=== PATIENT | male | born 1935 | race Caucasian/White ===

== ENCOUNTER 2018-09-17 18:34 | Inpatient (IN) ==
--- NOTE | 2018-09-17 19:11 | XRay Report ---
CLINICAL INFORMATION: Fall. Left hip pain TECHNIQUE: AP pelvis. AP and lateral left hip COMPARISON: None. FINDINGS: Lateral view suggests possible left subcapital hip fracture. This is not considered definite but is suspicious. CT scan may be helpful for further evaluation. Pelvis is negative. No pelvic fracture. Right hip is negative. IMPRESSION: 1. Possible left subcapital hip fracture. 2. CT scan may be helpful for further evaluation Interpreted and Authenticated by: Shashi Cruz 09/17/18
[2018-09-17] MEDS ORDERED: HYDROmorphone 2 MG/ML VIAL IV PRN ×2 (19:16→23:26)
--- NOTE | 2018-09-17 19:17 | Emergency Department Note ---
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 Didn't hit head. - Related Data Home Medications Medication Instructions Recorded Confirmed RX: Acyclovir [Zovirax] 400 mg PO BID 03/24/15 04/19/18 RX: Carvedilol [Coreg] 6.25 mg PO BIDCC 07/22/15 04/19/18 rivaroxaban 20 mg tablet 15 mg PO DAILY tab 12/11/16 04/19/18 RX: Cholecalciferol (Vitamin D3) 2,000 unit PO DAILY 01/21/18 04/19/18 [Vitamin D3] RX: Eplerenone [Inspra] 25 mg PO BID 01/21/18 04/19/18 RX: Hydrochlorothiazide [Oretic] 12.5 mg PO WEEKLY 01/21/18 04/19/18 RX: Multivit-Min/Iron/Folic Acid/K 1 tab PO DAILY 01/21/18 04/19/18 [Adults Multivitamin Tablet] RX: Torsemide [Demadex] 2 tablet PO BID 01/21/18 04/19/18 Previous Rx's Medication Instructions Recorded RX: Acetaminophen [Tylenol] 1,000 mg PO TID tablet 01/26/18 RX: Polyethylene Glycol 3350 17 gm PO BID #60 packet 01/26/18 [Miralax] RX: Polyethylene Glycol 3350 17 gm PO BIDP PRN packet 01/26/18 [Miralax] RX: Sennosides/Docusate Sodium 2 tab PO HS tablet 01/26/18 [Senna Plus Tablet] RX: oxyCODONE HCL [Roxicodone] 5 mg PO Q6HP PRN #30 tab 01/26/18 Cyclobenzaprine [Flexeril] 5 mg PO TIDP PRN #20 tab 05/24/18 RX: Doxycycline Hyclate 100 mg PO BID #20 cap 05/24/18 RX: HYDROcodone/APAP 5/325MG 1 tab PO Q4HP PRN #20 tab 05/24/18 [[place] 5-325Mg] predniSONE [Prednisone] 40 mg PO DAILY #10 tab 05/24/18 Allergies Allergy/AdvReac Type Severity Reaction Status Date / Time ciprofloxacin Allergy Severe Anaphylaxis Verified 09/17/18 18:35 Amoxicillin [AMOXICILLIN] Allergy Intermediate RASH Verified 09/17/18 18:35 azithromycin [From Zithromax] Allergy Unknown Pruritis Verified 09/17/18 18:35 tramadol [TRAMADOL] AdvReac Severe Nausea/Vomi Verified 09/17/18 18:35 ting codeine AdvReac Unknown NAUSEA/VOMI Verified 09/17/18 18:35 TING hydrocodone AdvReac Unknown NAUSEA/BLOA Verified 09/17/18 18:35 TING methocarbamol AdvReac Unknown VIOLENTLY Verified 09/17/18 18:35 ILL tobramycin AdvReac Unknown UNKNOWN Verified 09/17/18 18:35 Review of Systems All systems ED: reviewed and negative except as stated. Fall PMH - Past Medical History Attestation: Yes: The following information was validated with the patient. Medical history: Reports: atrial fibrillation, hyperlipidemia, hypertension, renal disease, other (Cardiac amyloidosis which is causing cardiomyopathy and CHF). Denies: DM Reports: Recurrent Falls, Peripheral Neuropathy - Social History smoking status: Never smoker Alcohol use: Reports: None Drug use: Reports: none Physical Exam Limitations: no limitations General appearance: alert, in no apparent distress Head: atraumatic, normocephalic Eye: Present: normal appearance, PERRL, EOMI ENT: normal exam, normal oropharynx, mucous membranes moist Neck: Present: normal inspection, full ROM Chest: Present: normal inspection, symmetric chest wall rise Respiratory: Present: normal lung sounds bilaterally. Absent: respiratory distress, rales/crackles, wheezes, stridor, accessory muscle use Cardiovascular: Present: irregular rhythm Abdominal: Present: soft. Absent: distention, tenderness, guarding, rebound Hip/Pelvis: Present: tenderness (tenderness along anterior groin, lateral left hip). Absent: deformity, external rotation, internal rotation, shortening Course Vital Signs Temperature 98.5 F 09/17/18 18:35 Pulse Rate 74 09/17/18 18:35 Respiratory Rate 18 09/17/18 18:35 Blood Pressure 109/63 09/17/18 18:35 Pulse Oximetry (%) 95 06/28/19 18:35 Temperature 97.8 F 09/17/18 20:34 Pulse Rate 78 09/17/18 22:01 Respiratory Rate 18 09/17/18 20:34 Blood Pressure 133/86 09/17/18 22:01 Pulse Oximetry (%) 90 09/17/18 22:01 Fall - MDM Narrative Medical decision making narrative: patient XR demonstrating probable subcapital hip fracture of left hip with f/u CT pelvis w/o contrast demonstrating: Nondisplaced left subcapital hip fracture. Mid and distal femoral neck and intertrochanteric region are negative. Left acetabulum is negative. No pelvic fracture. Superior and inferior pubic rami are negative. Sacrum is negative. Consulted orthopedics, who will admit for pinning of the subcapital nondisplaced left hip fracture. Patient anticoagulated with Xarelto, with comorbidities admitted to hospitalist service in fair condition. - Lab Data Lab results reviewed: Yes I reviewed the patient's lab results. Result diagrams: 09/17/18 19:28 09/17/18 19:28 Lab Results 09/17/18 09/17/18 09/17/18 Range/Units 19:28 19:28 19:28 WBC 6.2 (4.5-11.0) K/mcL RBC 2.38 L (4.50-5.90) M/mcL Hgb 8.5 L (13.5-16.5) g/dL Hct 26.1 L (41.0-55.0) % MCV 109.6 H (80.0-100.0) fL MCH 35.8 H (26.0-34.0) pg MCHC 32.6 (31.0-36.0) g/dL RDW 16.8 H (11.5-14.5) % Plt Count 181 (140-440) K/mcL MPV 7.9 (7.4-10.4) fL Gran % 60.2 (38.0-78.0) % Lymph % (Auto) 23.1 (15.5-49.0) % [place] % (Auto) 14.2 H (1.0-12.0) % Eos % (Auto) 2.4 (0.0-7.0) % Baso % (Auto) 0.1 (0.0-2.0) % Gran # 3.8 (1.8-8.0) K/mcL Lymph # (Auto) 1.4 L (1.5-4.8) K/mcL [place] # (Auto) 0.9 (0.1-0.9) K/mcL Eos # (Auto) 0.2 (0.0-0.7) K/mcL Baso # (Auto) 0 (0.0-0.3) K/mcL PT 16.7 H (11.9-14.5) sec INR 1.4 H (0.9-1.1) Sodium 131 L (133-145) mmol/L Potassium 3.7 (3.3-5.1) mmol/L Chloride 90 L (96-108) mmol/L Carbon Dioxide 27 (22-30) mmol/L Anion Gap 14.0 (8-16) BUN 58 H (8-23) mg/dl Creatinine 1.5 H (0.7-1.2) mg/dl GFR Calculation 43 Glucose 190 H (70-105) mg/dL Calcium 9.8 (8.6-10.4) mg/dl Total Bilirubin 0.7 (0.0-1.0) mg/dL AST 24 (0-37) U/l ALT 15 (0-40) U/l Alkaline Phosphatase 74 (39-117) U/L Total Protein 6.6 (5.9-8.4) gm/dL Albumin 3.4 (3.2-5.2) gm/dL Globulin 3.2 (2.2-3.7) gm/dL Albumin/Globulin Ratio 1.1 (1.0-2.3) - Radiology Data Radiology results reviewed: Yes I reviewed the patient's radiology results. Disposition Pt seen by [employer]ILER[employer]SE [employer]CH[employer]IC/PA only: No Clinical Impression: Chronic kidney disease, stage III (moderate), Cardiac amyloidosis, Atrial fibrillation with controlled ventricular response Femur fracture, left Qualifiers: Encounter type: initial encounter Femur location: intracapsular Fracture type: closed Qualified Code(s): S72.012A - Unspecified intracapsular fracture of left femur, initial encounter for closed fracture Atrial fibrillation Qualifiers: Atrial fibrillation type: persistent Qualified Code(s): I48.1 - Persistent atrial fibrillation (HFpEF) heart failure with preserved ejection fraction Qualifiers: Heart failure chronicity: chronic Qualified Code(s): I50.32 - Chronic diastolic (congestive) heart failure Disposition: Xfer As Inpt ([facility]) Condition: Fair Referrals: Nixon Shoemaker MD [Primary Care Provider] -
--- NOTE | 2018-09-17 20:05 | Cat Scan Report ---
CLINICAL INFORMATION: Fall. Left hip injury. TECHNIQUE: Thin section axial images through the pelvis. Sagittal and coronal reformatted images. COMPARISON: Plain film examination dated 09/17/2018. Abdominal and pelvic CT scan dated 04/19/2018 FINDINGS: Nondisplaced left subcapital hip fracture. Mid and distal femoral neck and intertrochanteric region are negative. Left acetabulum is negative. No pelvic fracture. Superior and inferior pubic rami are negative. Sacrum is negative. No intrapelvic hematoma. No periarticular soft tissue abnormality. IMPRESSION: Left subcapital hip fracture. Interpreted and Authenticated by: Shashi Cruz 09/17/18
[2018-09-17 20:19] LABS: Basophils # (Auto) 0 K/mcL (0.0-0.3); Basophils % (Auto) 0.1 % (0.0-2.0); Eosinophils # (Auto) 0.2 K/mcL (0.0-0.7); Eosinophils % (Auto) 2.4 % (0.0-7.0); Granulocytes % (Auto) 60.2 % (38.0-78.0); Hematocrit 26.1 % (41.0-55.0); Hemoglobin 8.5 g/dL (13.5-16.5); Lymphocytes # (Auto) 1.4 K/mcL (1.5-4.8); Lymphocytes % (Auto) 23.1 % (15.5-49.0); Mean Cell Volume 109.6 fL (80.0-100.0); Mean Corpuscular HGB Conc 32.6 g/dL (31.0-36.0); Mean Platelet Volume 7.9 fL (7.4-10.4); Monocytes # (Auto) 0.9 K/mcL (0.1-0.9); Monocytes % (Auto) 14.2 % (1.0-12.0); Platelet Count 181 K/mcL (140-440); RBC 2.38 M/mcL (4.50-5.90); Red Cell Distribution Width 16.8 % (11.5-14.5); WBC 6.2 K/mcL (4.5-11.0)
[2018-09-17 20:28] LABS: INR 1.4 (0.9-1.1); Prothrombin Time 16.7 sec (11.9-14.5)
[2018-09-17 20:39] LABS: ALT/SGPT 15 U/l (0-40); AST/SGOT 24 U/l (0-37); Albumin 3.4 gm/dL (3.2-5.2); Albumin/Globulin Ratio 1.1 (1.0-2.3); Alkaline Phosphatase 74 U/L (39-117); Bilirubin,Total 0.7 mg/dL (0.0-1.0); Blood Urea Nitrogen 58 mg/dl (8-23); Calcium 9.8 mg/dl (8.6-10.4); Carbon Dioxide 27 mmol/L (22-30); Chloride 90 mmol/L (96-108); Globulin 3.2 gm/dL (2.2-3.7); Glomerular Filtration Rate 43; Glucose 190 mg/dL (70-105); Potassium 3.7 mmol/L (3.3-5.1); Sodium 131 mmol/L (133-145)
--- NOTE | 2018-09-17 21:21 | Internal Med History&Physical ---
Medical - H&P: [facility] Patient information: Note initiated : 09/17/18 at 9:18 pm Service Date, if different from initiated Date: [] Patient: Solitario Marin a 83 y/o M admitted on for Fall. Chief Complaint: [] History of present illness: Mr. Marin is a 83 year old M With quite complicated medical history who comes in after a fall from a trip. Following a left hip with immediate pain and deformity. No head trauma. He is on Xarelto for atrial fibrillation. Patient is advanced health care after recent discharge from the hospital for heart failure. Patient has been hospitalized twice this year for altered mental status and heart failure and chest pain that was ruled out cardiac after work-up including SPECT scan. He has end-stage heart failure from amyloidosis and had multiple family discussions last admission and at [facility] where his CODE STATUS was changed to a DNR/DNI. He has a history of obstructive sleep apnea and has refused CPAP. He is has failure to thrive. His best vascular dementia. 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 H fibrillation grade 3 diastolic heart failure severe pulmonary hypertension chronic kidney disease chronic anemia. In the ED was worked up which included imaging which showed a left subcapital hip fracture. Review of Systems: Pertinent positives as above. Denies headache/fever/chills/nausea/vomiting/chest or abdominal pain/cough/dyspnea out of normal/diarrhea. Remaining 10 point review of systems reviewed negative Medical - H&P: PM Medical history: Medical History (Last Reviewed 04/07/17 @ 16:01 by Riaz Talbert MD) (HFpEF) heart failure with preserved ejection fraction (Chronic) Clostridium difficile infection (Chronic) Familial tremor (Chronic) Constipation (Chronic) BPH (benign prostatic hyperplasia) (Chronic) Chronic kidney disease, stage III (moderate) (Chronic) Venous insufficiency (chronic) (peripheral) (Chronic) Acute on chronic diastolic (congestive) heart failure (Chronic) Dilated cardiomyopathy (Chronic) Nutritional anemia, unspecified (Chronic) Arthropathy, unspecified (Chronic) Persistent atrial fibrillation (Chronic) Hypokalemia (Chronic) Essential (primary) hypertension (Chronic) Intermittent claudication (Chronic) Hypoglycemia (Chronic) Rash and other nonspecific skin eruption (Chronic) Lumbar and sacral arthritis (Chronic) Rosacea (Chronic) Osteoarthritis (Chronic) Hyperlipidemia (Chronic) Essential and other specified forms of tremor (Chronic) Other chcf (current) drug therapy (Chronic) Obstructive sleep apnea (adult) (pediatric) (Chronic) Chronic diastolic (congestive) heart failure (Chronic) Fecal impaction in rectum (Acute) Hemorrhoids (Acute) Abdominal pain (Acute) Diastolic CHF (Acute) Upper respiratory infection (Acute) Hypertension (Acute) Low back pain (Acute) Atrial fibrillation (Acute) Cellulitis (Resolved) Past Surgical History (Last Reviewed 01 History of Descemet's stripping endothelial keratoplasty (DSEK) (Chronic 07/2014) History of prostate surgery (Chronic 2010) History of spinal surgery (Chronic 05/2014) History of surgery (Chronic 03/2014) History of total right knee replacement (Chronic 05/2013) Family History (Last Reviewed 0 Mother lung cancer Father prostate cancer Social History (Last Upd Denies alcohol or tobacco resides at senior living facility Medical - H&P: Meds Home Medications Medication Instructions Recorded Confirmed Type Acyclovir [Zovirax] 400 mg PO BID 03/24/15 04/19/18 History Carvedilol [Coreg] 6.25 mg PO BIDCC 07/22/15 04/19/18 History rivaroxaban 20 mg tablet 15 mg PO DAILY tab 12/11/16 04/19/18 History Cholecalciferol (Vitamin D3) 2,000 unit PO DAILY 01/21/18 04/19/18 History [Vitamin D3] Eplerenone [Inspra] 25 mg PO BID 01/21/18 04/19/18 History Hydrochlorothiazide [Oretic] 12.5 mg PO WEEKLY 01/21/18 04/19/18 History Multivit-Min/Iron/Folic Acid/K 1 tab PO DAILY 01/21/18 04/19/18 History [Adults Multivitamin Tablet] Torsemide [Demadex] 2 tablet PO BID 01/21/18 04/19/18 History Acetaminophen [Tylenol] 1,000 mg PO TID tablet 01/26/18 04/19/18 Rx Polyethylene Glycol 3350 [Miralax] 17 gm PO BID #60 packet 01/26/18 04/19/18 Rx Polyethylene Glycol 3350 [Miralax] 17 gm PO BIDP PRN packet 01/26/18 04/19/18 Rx Sennosides/Docusate Sodium [Senna 2 tab PO HS tablet 01/26/18 04/19/18 Rx Plus Tablet] oxyCODONE HCL [Roxicodone] 5 mg PO Q6HP PRN #30 tab 01/26/18 04/19/18 Rx Cyclobenzaprine [Flexeril] 5 mg PO TIDP PRN #20 tab 05/24/18 Rx Doxycycline Hyclate 100 mg PO BID #20 cap 05/24/18 Rx HYDROcodone/APAP 5/325MG [[place] 1 tab PO Q4HP PRN #20 tab 05/24/18 Rx 5-325Mg] predniSONE [Prednisone] 40 mg PO DAILY #10 tab 05/24/18 Rx Allergies Allergy/AdvReac Type Severity Reaction Status Date / Time ciprofloxacin Allergy Severe Anaphylaxis Verified 09/17/18 18:35 Amoxicillin [AMOXICILLIN] Allergy Intermediate RASH Verified 09/17/18 18:35 azithromycin [From Zithromax] Allergy Unknown Pruritis Verified 09/17/18 18:35 tramadol [TRAMADOL] AdvReac Severe Nausea/Vomi Verified 09/17/18 18:35 ting codeine AdvReac Unknown NAUSEA/VOMI Verified 09/17/18 18:35 TING hydrocodone AdvReac Unknown NAUSEA/BLOA Verified 09/17/18 18:35 TING methocarbamol AdvReac Unknown VIOLENTLY Verified 09/17/18 18:35 ILL tobramycin AdvReac Unknown UNKNOWN Verified 09/17/18 18:35 Medical - H&P: Exam - Constitutional Vitals: Temp Pulse Resp BP Pulse Ox 97.8 F 76 18 127/70 100 09/17/18 20:34 09/17/18 20:34 09/17/18 20:34 09/17/18 20:34 09/17/18 20:34 Exam: General: Alert, Awake, No acute Distress Eyes/N/T: EOMI, PEERL, Head/Neck: neck supple, normocephalic atraumatic CV: irreg irreg, No murmurs, Pulm: Clear b/l, no wheezing/rhonchi/rales Abd: soft, nontender, +BS x4 Ext: no clubbing/cyanosis, 2-3+ chronic b/l LE edema Neuro: Alert, no focal deficits, moves all extremities, CN 2-12 grossly intact, sensations intact b/l upper/lower although decreased b/l LE from neuropathy Skin: warm/dry Medical - H&P: Reslt - Labs CBC & Chem 7: 09/17/18 19:28 09/17/18 19:28 Labs: Short CBC 09/17/18 Range/Units 19:28 WBC 6.2 (4.5-11.0) K/mcL Hgb 8.5 L (13.5-16.5) g/dL Hct 26.1 L (41.0-55.0) % Plt Count 181 (140-440) K/mcL BMP 09/17/18 19:28 Sodium 131 L Potassium 3.7 Chloride 90 L Carbon Dioxide 27 BUN 58 H Creatinine 1.5 H Glucose 190 H Calcium 9.8 Liver Function 09/17/18 Range/Units 19:28 Total Bilirubin 0.7 (0.0-1.0) mg/dL AST 24 (0-37) U/l ALT 15 (0-40) U/l Alkaline Phosphatase 74 (39-117) U/L Albumin 3.4 (3.2-5.2) gm/dL - Impressions CT pelvis with left hip fracture Medical - H&P: A/P - Narrative A/P Narrative: A: *Acute left hip fracture after trip and fall: *Generalized weakness/deconditioning/debility/failure to thrive: *h/o diastolic (III) CHF: 2/2 amyloidosis *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 *Afib: On BB/Xarelto *Severe pulmonary HTN: *HTN: *CKD III: *Anemia, chronic *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 plunkett would surely be more debilitating and cause undue suffering. -Hold Xarelto pending surgery -Dr. Plunkett for orthopedic surgery -monitor i/o, weights, fluid balance closely -pain control -cont BB, hold diuretics in AM -Clarify Home occasions, he is on at least one experimental medication for his amyloidosis as part of a research program this will have to be obtained from his home medications -pt/ot -CM for placement -ppx: SCD until surgery DNR/DNI
[2018-09-17] MEDS ORDERED: HYDROmorphone 2 MG/ML VIAL IV ONE (21:48)
[2018-09-17] MEDS ORDERED: 0.9 % SODIUM CHLORIDE 250 ML IV SCH ×2 (22:15→23:26)
[2018-09-17] MEDS ORDERED: SENNOSIDES 1 TABLET PO PRN (23:26)
[2018-09-17] MEDS ORDERED: POLYETHYLENE GLYCOL 3350 17 GM PACKET PO PRN (23:26)
[2018-09-17] MEDS ORDERED: ACETAMINOPHEN 325 MG TABLET PO PRN (23:26)
[2018-09-17] MEDS ORDERED: LACTULOSE 20 GM/30 ML ORAL.SOL PO PRN (23:26)
[2018-09-17] MEDS ORDERED: MAGNESIUM SULFATE 2 GM/50 ML BAG IV PRN (23:26)
[2018-09-17] MEDS ORDERED: oxyCODONE/APAP 5/325MG TABLET PO PRN (23:26)
[2018-09-17] MEDS ORDERED: PROMETHAZINE 25 MG TABLET PO PRN (23:26)
[2018-09-17] MEDS ORDERED: METOCLOPRAMIDE 10 MG/2 ML VIAL IV PRN (23:26)
[2018-09-17] MEDS ORDERED: POTASSIUM CHLORIDE 40 MEQ in DEXTROSE 5% IN WATER 500 ML IV PRN (23:26)
[2018-09-17] MEDS ORDERED: IPRATROPIUM/ALBUTEROL 3 ML AMPUL.NEB NEB PRN (23:26)
[2018-09-17] MEDS ORDERED: ONDANSETRON 4 MG/2 ML VIAL IV PRN (23:26)
[2018-09-17] MEDS ORDERED: POTASSIUM CHLORIDE 20 MEQ TABLET PO PRN ×2 (23:26)
[2018-09-18] MEDS: 0.9 % SODIUM CHLORIDE 10 ML SYRINGE IV SCH ×4 (00:27→20:43)
[2018-09-18] MEDS ORDERED: SCOPOLAMINE 1 PATCH PATCH TOPICAL PRN (01:52)
[2018-09-18] MEDS ORDERED: IPRATROPIUM/ALBUTEROL 3 ML AMPUL.NEB NEB PRN ×3 (01:52→10:30)
[2018-09-18 02:50] LABS: Appearance,Urine CLEAR; Bilirubin,Urine NEG (NEG); Color,Urine YELLOW; Glucose,Urine (UA) NEGATIVE (NEG); Ketones,Urine NEG (NEG); Leukocyte Esterase,Urine NEG /uL (NEG); Nitrate,Urine NEG (NEG); Protein,Urine NEG (NEG); Specific Gravity,Urine 1.013 (1.000-1.035); Urine Blood NEG mg/dL (<0.03); Urobilinogen,Urine NEG (NEG)
--- NOTE | 2018-09-18 05:30 | Consultation ---
DATE OF CONSULTATION: 09/17/2018 REASON FOR CONSULTATION: Left hip fracture. CONSULTING PROVIDER: Shashi Sanchez DO CHIEF COMPLAINT: Left hip pain status post fall. HISTORY OF PRESENT ILLNESS: The patient is an 83-year-old male who earlier today was walking with his walker when it collapsed and he fell onto his left side. He has had inability to ambulate and complaining of isolated left hip pain and left elbow pain. He was brought to the ER here at [facility] for evaluation and treatment. He has had an x-ray of his pelvis demonstrating a questionable subcapital femoral neck fracture with CT demonstrating a nondisplaced femoral neck subcapital fracture. The patient does endorse inability to ambulate on this leg and previously he was just regaining the strength where he could ambulate using a walker as he had a failure to thrive secondary to multiple medical comorbidities. PAST MEDICAL HISTORY: Significant for atrial fibrillation which he is on Xarelto for, hyperlipidemia, hypertension, chronic renal disease and cardiomyopathy with congestive heart failure secondary to cardiac amyloidosis. He has been hospitalized recently for congestive heart failure at [facility]. PAST SURGICAL HISTORY: He has had a right total knee arthroplasty. ALLERGIES: CIPROFLOXACIN, AMOXICILLIN, AZITHROMYCIN, TRAMADOL, CODEINE. MEDICATIONS: He takes Coreg, Xarelto, vitamin D, Inspra, hydrochlorothiazide, multivitamins including iron and folic acid, torsemide. SOCIAL HISTORY: He currently does reside in an assisted living facility with his dog. He has a family that lives in [place], [place]. He is currently a DNR/DNI after most recent hospitalization with end-stage heart disease. He also has COPD which he refuses CPAP use for contributing to his pathology. He has had several bouts of failure to thrive as well as had previous discussion with family regarding physician-assisted suicide in [facility], but has chosen against that. He denies tobacco use. PHYSICAL EXAMINATION: GENERAL: The patient is alert, oriented and in no acute distress. He is interactive and appropriate. VITAL SIGNS: His heart rate is 83, blood pressure 123/77 with a 97% O2 sat on 2 liters nasal cannula. EXTREMITIES: Bilateral shoulders reveal they are atraumatic. No crepitus. He has baseline rotator cuff arthropathy. He does have a left elbow abrasion which has a large dressing over it, which was not removed. Otherwise, no pain about the forearm, wrist or hand. There is full active range of motion bilaterally including the left elbow. His pelvis is stable to compression. His right lower extremity is atraumatic as well as an incision over his knee from a prior total knee arthroplasty. He has no pain to palpation throughout the extremity. He is able to flex and extend the hip as well as the knee, ankle and toes, and his foot is warm and well perfused with intact sensation to gross touch. Left lower extremity, he has pain with any movement of his left hip. He has no tenderness about the knee, leg, ankle or foot itself. Skin is intact throughout. He has sensation intact to gross touch bilateral lower extremity as well. He has imaging of his pelvis and a CT which demonstrates a nondisplaced subcapital femoral neck fracture. LABORATORY DATA: He has CBC with a white count that is normal at 6.2. His H and H are 8.5 and 26.1 and his platelet count is 181. His coags with a PT of 15.7, INR of 1.4. There is no bleeding time to assess platelet function. Chemistries: He has a creatinine of 1.5, glucose of 190. He denies being diabetic. ASSESSMENT AND PLAN: An 83-year-old male with significant medical comorbidities increasing his risk for any surgical procedure. However, discussed the diagnosis and the treatment options with him at length today. He understands the options very well. My operative plan would be for cannulated screws which were relatively quick and straightforward with little blood loss as his H and H are already low along with his cardiac condition. Would discuss doing a spinal rather than a general anesthesia - which I will further discuss with anesthesian team. Nonoperative treatment is also an option. However, with this he would be not able to bear weight on the extremity and the mobilization will be relatively painful for a long period of time with a high risk for displacement of fracture leading to the fracture not healing, potential chronic pain, and conditions asociated with being confied to bed. He has a good grasp of his options. He is very concerned regarding the surgery. He is going to further think about it. I provided him with handouts regarding hip pinning. I provided him with the risks of surgery along with the general risks associated with a hip fracture to include mortality and morbidity, at a 3-month alberta and 1 year alberta which he does understand quite clearly. I will further discuss the options with him but my plan would be for left hip pinning. In the interim, the patient will be admitted to the hospitalist for further management and medical comorbidities. Addednum: Discussed with his son as well over the phone later in the evening and elected to proceed with left hip pinning. LILIANA:rivas Job ID: [id number] Doc ID: [id number] Deb HUMPHREYS
[2018-09-18 06:11] LABS: Basophils # (Auto) 0 K/mcL (0.0-0.3); Basophils % (Auto) 0 % (0.0-2.0); Eosinophils # (Auto) 0.2 K/mcL (0.0-0.7); Eosinophils % (Auto) 1.3 % (0.0-7.0); Granulocytes % (Auto) 81.1 % (38.0-78.0); Hemoglobin 8.4 g/dL (13.5-16.5); Lymphocytes # (Auto) 0.9 K/mcL (1.5-4.8); Lymphocytes % (Auto) 7.4 % (15.5-49.0); Mean Cell Volume 110.8 fL (80.0-100.0); Mean Corpuscular HGB Conc 32.3 g/dL (31.0-36.0); Mean Platelet Volume 8.2 fL (7.4-10.4); Monocytes # (Auto) 1.2 K/mcL (0.1-0.9); Monocytes % (Auto) 10.2 % (1.0-12.0); Platelet Count 178 K/mcL (140-440); RBC 2.35 M/mcL (4.50-5.90); Red Cell Distribution Width 17.4 % (11.5-14.5); WBC 11.8 K/mcL (4.5-11.0)
[2018-09-18 06:52] LABS: ALT/SGPT 15 U/l (0-40); AST/SGOT 24 U/l (0-37); Albumin 3.3 gm/dL (3.2-5.2); Albumin/Globulin Ratio 1.1 (1.0-2.3); Alkaline Phosphatase 66 U/L (39-117); Bilirubin,Direct 0.3 mg/dL (0.0-0.3); Bilirubin,Total 0.9 mg/dL (0.0-1.0); Blood Urea Nitrogen 53 mg/dl (8-23); Calcium 9.4 mg/dl (8.6-10.4); Carbon Dioxide 26 mmol/L (22-30); Chloride 93 mmol/L (96-108); Glomerular Filtration Rate 51; Glucose 141 mg/dL (70-105); Lactate Dehydrogenase 313 U/L (94-250); Magnesium 2.2 mg/dL (1.6-2.5); Phosphorous 3.2 mg/dL (2.7-4.5); Sodium 135 mmol/L (133-145); Triglycerides 80 mg/dl (<150); Uric Acid 13.4 mg/dL (2.5-8.0)
[2018-09-18] MEDS ORDERED: HYDROmorphone 2 MG/ML VIAL ONE (06:52)
[2018-09-18] MEDS ORDERED: 0.9 % SODIUM CHLORIDE 250 ML IV SCH ×2 (07:15→10:30)
[2018-09-18 07:19] LABS: INR 1.3 (0.9-1.1)
[2018-09-18] MEDS ORDERED: OMEPRAZOLE 20 MG CAPSULE PO SCH (07:30)
[2018-09-18] MEDS ORDERED: MAGNESIUM HYDROXIDE 30 ML ORAL.SUSP PO PRN ×2 (07:32→10:30)
[2018-09-18] MEDS ORDERED: LOPERAMIDE 2 MG CAPSULE PO PRN ×2 (07:32→10:30)
[2018-09-18] MEDS ORDERED: ceFAZolin 1 GM VIAL ONE (07:38)
--- NOTE | 2018-09-18 07:39 | Internal Med Progress Note ---
Medical - PN: Subj Patient information: Note initiated : 09/18/18 at 7:30 am Service Date, if different from initiated Date: [] Patient: Solitario Marin a 83 y/o M admitted on 09/17/18 for Fall. Chief Complaint: [] Interval history: Mr. Marin is a 83 year old M With quite complicated medical history who comes in after a fall from a trip. Following a left hip with immediate pain and deformity. No head trauma. He is on Xarelto for atrial fibrillation. Patient is advanced health care after recent discharge from the hospital for heart failure. Patient has been hospitalized twice this year for altered mental status and heart failure and chest pain that was ruled out cardiac after work-up including SPECT scan. 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 He has a history of obstructive sleep apnea and has refused CPAP. He is has failure to thrive. His best vascular dementia. 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 H fibrillation grade 3 diastolic heart failure severe pulmonary hypertension chronic kidney disease chronic anemia. In the ED was worked up which included imaging which showed a left subcapital hip fracture. 09/18 No overnight events. Patient now status post hip pinning. Patient seen in PACU. No intraoperative complications. Patient still feeling effects of anesthesia. Nodded his head no to pain, but otherwise otherwise unable to obtain review of systems - Constitutional Vitals: Vital Signs Temp Pulse Resp BP Pulse Ox 98.1 F 82 18 107/50 95 09/18/18 03:26 09/18/18 05:47 09/18/18 03:26 09/18/18 03:53 09/18/18 05:47 Period Temp Pulse Resp BP Sys/Fox Pulse Ox Last 24 Hr 97.8 F-98.5 F 70-133 14-28 104-133/50-86 90-100 Intake and Output 09/17/18 09/18/18 09/18/18 21:59 05:59 13:59 Intake Total 297 Output Total 750 Balance -453 Weight 78.925 kg 77.791 kg Intake & Output: Intake & Output 09/17/18 09/18/18 09/18/18 21:59 05:59 13:59 Intake Total 297 Output Total 750 Balance -453 Weight 78.925 kg 77.791 kg Intake: Oral 297 Output: Void Amount 750 Other: Urine Appearance Clear Urine Color Pale Urine Odor Normal Exam: General: Somnolent from anesthesia, No acute Distress Eyes/N/T: EOMI,, Head/Neck: neck supple, CV: irreg irreg, No murmurs, Pulm: Clear b/l, no wheezing/rhonchi/rales Abd: soft, nontender, +BS x4 Ext: no clubbing/cyanosis, 2-3+ chronic b/l LE edema Neuro: Still feeling sedative effect of anesthesia, spontaneously moves extremities skin: warm/dry Medical - PN: Obj Da - Labs CBC & Chem 7: 09/18/18 03:35 09/18/18 03:35 Labs: Abnormal Lab Results 09/18/18 09/18/18 09/18/18 03:35 03:35 03:35 WBC 11.8 H RBC 2.35 L Hgb 8.4 L Hct 26.0 L MCV 110.8 H MCH 35.8 H RDW 17.4 H Gran % 81.1 H Lymph % (Auto) 7.4 L [place] % (Auto) Gran # 9.5 H Lymph # (Auto) 0.9 L [place] # (Auto) 1.2 H PT 16.0 H INR 1.3 H Sodium Potassium 3.0 L Chloride 93 L BUN 53 H Creatinine 1.3 H Glucose 141 H Uric Acid 13.4 H GGT 64 H Lactate Dehydrogenase 313 H 09/17/18 09/17/18 09/17/18 19:28 19:28 19:28 WBC RBC 2.38 L Hgb 8.5 L Hct 26.1 L MCV 109.6 H MCH 35.8 H RDW 16.8 H Gran % Lymph % (Auto) [place] % (Auto) 14.2 H Gran # Lymph # (Auto) 1.4 L [place] # (Auto) PT 16.7 H INR 1.4 H Sodium 131 L Potassium Chloride 90 L BUN 58 H Creatinine 1.5 H Glucose 190 H Uric Acid GGT Lactate Dehydrogenase Meds: Medications Acetaminophen (Tylenol) 650 mg PO Q6HP PRN PRN Reason: PAIN/FEVER > 101 Albuterol/Ipratropium (Duoneb) 3 ml NEB Q4HP PRN PRN Reason: Shortness Of Breath Docusate Sodium (Colace) 100 mg PO BID [facility] Hydromorphone HCl (Dilaudid) 0.5 mg IV Q2HP PRN PRN Reason: PAIN LEVEL > 6 Sodium Chloride (Sodium Chloride 0.9%) 250 mls @ 20 mls/hr IV .[id number] [facility] Stop: 09/18/18 10:44 Last Admin: 09/18/18 00:29 Dose: 20 mls/hr Documented by: Potassium Chloride 40 meq/ (Dextrose) 520 mls @ 130 mls/hr IV UD PRN PRN Reason: Potassium < 3 Magnesium Sulfate (Magnesium Sulfate) 2 gm in 50 mls @ 50 mls/hr IV UD PRN PRN Reason: Magnesium </= 1.6 Sodium Chloride (Sodium Chloride 0.9%) 250 mls @ 20 mls/hr IV .[id number] [facility] Stop: 09/18/18 19:44 Lactulose (Cephulac) 10 gm PO DAILYP PRN PRN Reason: Constipation Metoclopramide HCl (Reglan) 10 mg IV Q6HP PRN PRN Reason: Nausea And Vomiting Ondansetron HCl (Zofran) 4 mg IV Q4HP PRN PRN Reason: Nausea And Vomiting Oxycodone/Acetaminophen (Percocet 5-325 Mg) 1 tab PO Q4HP PRN PRN Reason: PAIN LEVEL 3-6 Polyethylene Glycol (Miralax) 17 gm PO DAILYP PRN PRN Reason: Constipation Potassium Chloride (Kdur) 40 meq PO UD PRN PRN Reason: Potssium is 3-3.5 Potassium Chloride (Kdur) 40 meq PO UD PRN PRN Reason: Potassium < 3 Promethazine HCl (Phenergan) 0 mg PO Q6HP PRN PRN Reason: Nausea And Vomiting Senna (Senokot) 2 tab PO HSP PRN PRN Reason: Constipation Sodium Chloride (Saline Flush) 10 ml IV Q8 [facility] Last Admin: 09/18/18 04:20 Dose: Not Given Documented by: Medical - PN: A/P - Time Spent With Patient Total time spent is greater than 50% in coordination of care (as documented) at patient's floor/unit and/or counseling patient: - Narrative A/P Narrative: A: *Acute left hip fracture after trip and fall: s/p Hip pinning (6/29) *Generalized weakness/deconditioning/debility/failure to thrive: *h/o diastolic (III) CHF: 2/2 amyloidosis *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 plunkett would surely be more debilitating and cause undue sesay ffering. -High perioperative mortality risk -Hold Xarelto pending surgery -Dr. Plunkett for orthopedic surgery -monitor i/o, weights, fluid balance closely -monitor H&H -pain control -cont BB, diuretics held this AM for surgery - -pt/ot -CM for placement -ppx: SCD until surgery DNR/DNI Medical - PN: Qual - VTE Deep Vein Thrombosis/Pulmonary Embolism Present on Admission: No
[2018-09-18] MEDS ORDERED: BISACODYL 10 MG SUPP.RECT PR PRN ×2 (07:45→10:30)
[2018-09-18] MEDS ORDERED: ceFAZolin 2 GM in DEXTROSE 5% IN WATER 50 ML IV SCH ×2 (07:45→10:30)
[2018-09-18] MEDS ORDERED: DEXAMETHASONE 10 MG/ML VIAL ONE (08:00)
[2018-09-18] MEDS ORDERED: fentaNYL 100 MCG/2 ML VIAL IV ONE (08:00)
[2018-09-18] MEDS ORDERED: KETAMINE 10 MG/ML ML ONE (08:00)
[2018-09-18] MEDS ORDERED: POTASSIUM CHLORIDE 20 MEQ in DEXTROSE 5% IN WATER 250 ML IV ONE (08:00)
[2018-09-18] MEDS ORDERED: ONDANSETRON 4 MG/2 ML VIAL ONE (08:00)
[2018-09-18] MEDS ORDERED: CARVEDILOL 3.125 MG TABLET PO SCH (08:00)
[2018-09-18] MEDS ORDERED: PHENYLEPHRINE 10 MG/ML VIAL ONE (08:00)
[2018-09-18] MEDS ORDERED: PROPOFOL 200 MG/20 ML VIAL IV ONE (08:00)
[2018-09-18] MEDS ORDERED: MIDAZOLAM 2 MG/2 ML VIAL ONE (08:00)
[2018-09-18] MEDS ORDERED: MEPERIDINE 25 MG/ML SYRINGE IV PRN (08:31)
[2018-09-18] MEDS ORDERED: NALOXONE HCL 0.4 MG/ML VIAL IV PRN (08:31)
[2018-09-18] MEDS ORDERED: diphenhydrAMINE 50 MG/ML VIAL IV PRN (08:31)
[2018-09-18] MEDS ORDERED: ONDANSETRON 4 MG/2 ML VIAL IV PRN ×2 (08:31→10:30)
[2018-09-18] MEDS ORDERED: FLUMAZENIL 0.1 MG/ML ML IV PRN (08:31)
[2018-09-18] MEDS ORDERED: PROMETHAZINE 25 MG/ML VIAL IV PRN (08:31)
[2018-09-18] MEDS ORDERED: ACETAMINOPHEN 1,000 MG/100 ML BOTTLE IV ONE ×2 (08:31→22:18)
[2018-09-18] MEDS ORDERED: LACTATED RINGERS 1,000 ML IV SCH (08:45)
--- NOTE | 2018-09-18 08:53 | Brief Operative Note ---
Date of procedure: 09/18/18 Pre-op diagnosis: left femoral neck fracture Post-op diagnosis: same Procedure: internal fixation of left hip with cannulated screws Grafts/Implants: Yes (6.5 cannulated titanium yosi screws) Anesthesia: GETA Findings: non displaced femoral neck fracture Complications: none Surgeon: Deb Plunkett Apparel Rental Clerk: Jordin Longo Estimated blood loss (cc): 20 Tourniquet Time (Minutes): 0 Specimens Removed/Pathology: none sent Condition: stable Disposition: PACU
[2018-09-18] MEDS ORDERED: EPLERENONE 100 MG PO SCH (09:00)
[2018-09-18] MEDS ORDERED: CITALOPRAM 20 MG TABLET PO SCH (09:00)
[2018-09-18] MEDS ORDERED: POTASSIUM CHLORIDE 40 MEQ PO SCH (09:00)
[2018-09-18] MEDS ORDERED: NON FORMULARY MEDICATION 1 DOSE MISCELL (Potassium Chloride [K-Tab Er] 20 MEQ) PO SCH (09:00)
[2018-09-18] MEDS ORDERED: BENZOCAINE/MENTHOL 1 LOZENGE PO PRN ×2 (09:00→10:30)
[2018-09-18] MEDS ORDERED: MULTIVIT,THER IRON,CA,FA & MIN 1 TABLET PO SCH (09:00)
[2018-09-18] MEDS ORDERED: DOCUSATE SODIUM 100 MG CAPSULE PO SCH (09:00)
[2018-09-18] MEDS ORDERED: CALCIUM CARBONATE 500 MG TAB.CHEW PO SCH (09:00)
[2018-09-18] MEDS ORDERED: TAFAMIDIS MEGLUMINE PO SCH (09:00)
[2018-09-18] MEDS: fentaNYL 100 MCG/2 ML VIAL IV PRN ×2 (09:28→09:40)
[2018-09-18] MEDS ORDERED: PROMETHAZINE 25 MG TABLET PO PRN (10:30)
[2018-09-18] MEDS ORDERED: POTASSIUM CHLORIDE 40 MEQ in DEXTROSE 5% IN WATER 500 ML IV PRN (10:30)
[2018-09-18] MEDS ORDERED: POTASSIUM CHLORIDE 20 MEQ TABLET PO PRN ×2 (10:30)
[2018-09-18] MEDS ORDERED: LACTULOSE 20 GM/30 ML ORAL.SOL PO PRN (10:30)
[2018-09-18] MEDS ORDERED: METOCLOPRAMIDE 10 MG/2 ML VIAL IV PRN (10:30)
[2018-09-18] MEDS ORDERED: ACETAMINOPHEN 325 MG TABLET PO PRN (10:30)
[2018-09-18] MEDS ORDERED: MAGNESIUM SULFATE 2 GM/50 ML BAG IV PRN (10:30)
--- NOTE | 2018-09-18 11:08 | XRay Report ---
CLINICAL INFORMATION: Left hip fracture TECHNIQUE: 1.0 minutes fluoroscopy utilized. 3 cancellous screws placed within the left femoral neck and head. Spot films were obtained IMPRESSION: Intraoperative fluoroscopy for open reduction and internal fixation of left subcapital hip fracture Interpreted and Authenticated by: Shashi Cruz 09/18/18
--- NOTE | 2018-09-18 11:09 | XRay Report ---
CLINICAL INFORMATION: Left subcapital hip fracture TECHNIQUE: AP and lateral left hip. AP pelvis COMPARISON: Previous left hip and CT scan dated 09/17/2018 FINDINGS: Internal fixation of left subcapital hip fracture. 3 cancellous screws were placed. Alignment is anatomic. Pelvis and sacrum are negative. IMPRESSION: Internal fixation of left subcapital hip fracture Interpreted and Authenticated by: Shashi Cruz 09/18/18
[2018-09-18] MEDS: TAFAMIDIS MEGLUMINE PO SCH (12:00)
[2018-09-18] MEDS: oxyCODONE/APAP 5/325MG TABLET PO PRN ×2 (12:23→19:20)
[2018-09-18] MEDS: HYDROmorphone 2 MG/ML VIAL IV PRN ×2 (12:53→21:03)
[2018-09-18] MEDS ORDERED: ceFAZolin 1 GM VIAL IV SCH (15:30)
[2018-09-18] MEDS ORDERED: BUMETANIDE 1 MG TABLET PO SCH (16:00)
[2018-09-18] MEDS: TORSEMIDE 10 MG TABLET PO SCH (16:18)
[2018-09-18] MEDS: BUMETANIDE 1 MG TABLET PO SCH (16:19)
[2018-09-18] MEDS: ceFAZolin 1 GM VIAL IV SCH (16:54)
[2018-09-18] MEDS: RIVAROXABAN 15 MG TABLET PO SCH (16:54)
[2018-09-18] MEDS: CARVEDILOL 3.125 MG TABLET PO SCH (16:55)
[2018-09-18] MEDS ORDERED: RIVAROXABAN 15 MG TABLET PO SCH (17:30)
[2018-09-18] MEDS ORDERED: traMADol 50 MG TABLET PO PRN (19:47)
[2018-09-18] MEDS: POLYETHYLENE GLYCOL 3350 17 GM PACKET PO PRN (20:41)
[2018-09-18] MEDS: POTASSIUM CHLORIDE 20 MEQ TABLET PO SCH (20:41)
[2018-09-18] MEDS: traZODone HCL 50 MG TABLET PO SCH (20:42)
[2018-09-18] MEDS: SENNOSIDES 1 TABLET PO PRN (20:42)
[2018-09-18] MEDS: DOCUSATE SODIUM 100 MG CAPSULE PO SCH (20:42)
[2018-09-18] MEDS ORDERED: traZODone HCL 50 MG TABLET PO SCH (21:00)
[2018-09-18] MEDS: ACETAMINOPHEN 650 MG/65 ML BOTTLE IV PRN (22:26)
[2018-09-19] MEDS: oxyCODONE/APAP 5/325MG TABLET PO PRN ×4 (00:05→21:12)
[2018-09-19] MEDS: ceFAZolin 1 GM VIAL IV SCH (00:05)
[2018-09-19] MEDS: 0.9 % SODIUM CHLORIDE 10 ML SYRINGE IV SCH ×3 (05:49→21:30)
[2018-09-19] MEDS: ACETAMINOPHEN 650 MG/65 ML BOTTLE IV PRN ×3 (05:55→21:25)
[2018-09-19 05:56] LABS: Basophils # (Auto) 0 K/mcL (0.0-0.3); Basophils % (Auto) 0 % (0.0-2.0); Eosinophils # (Auto) 0.1 K/mcL (0.0-0.7); Eosinophils % (Auto) 0.8 % (0.0-7.0); Granulocytes % (Auto) 77.7 % (38.0-78.0); Hematocrit 22.9 % (41.0-55.0); Hemoglobin 7.3 g/dL (13.5-16.5); Lymphocytes # (Auto) 0.7 K/mcL (1.5-4.8); Mean Cell Volume 111.9 fL (80.0-100.0); Mean Corpuscular HGB Conc 31.8 g/dL (31.0-36.0); Mean Platelet Volume 8.3 fL (7.4-10.4); Monocytes # (Auto) 0.8 K/mcL (0.1-0.9); Monocytes % (Auto) 11.5 % (1.0-12.0); Platelet Count 135 K/mcL (140-440); RBC 2.05 M/mcL (4.50-5.90); Red Cell Distribution Width 16.8 % (11.5-14.5); WBC 7.4 K/mcL (4.5-11.0)
[2018-09-19 06:40] LABS: Blood Urea Nitrogen 50 mg/dl (8-23); Calcium 9.4 mg/dl (8.6-10.4); Carbon Dioxide 25 mmol/L (22-30); Chloride 93 mmol/L (96-108); Glomerular Filtration Rate 43; Glucose 160 mg/dL (70-105); Sodium 131 mmol/L (133-145)
[2018-09-19] MEDS: POTASSIUM CHLORIDE 20 MEQ TABLET PO SCH (07:18)
[2018-09-19] MEDS: TORSEMIDE 10 MG TABLET PO SCH (07:19)
[2018-09-19] MEDS: CARVEDILOL 3.125 MG TABLET PO SCH ×2 (07:19→17:18)
[2018-09-19] MEDS: OMEPRAZOLE 20 MG CAPSULE PO SCH (07:19)
[2018-09-19] MEDS: BUMETANIDE 1 MG TABLET PO SCH (07:28)
--- NOTE | 2018-09-19 07:48 | Internal Med Progress Note ---
Medical - PN: Subj Patient information: Note initiated : 09/19/18 at 7:43 am Service Date, if different from initiated Date: [] Patient: Solitario Marin a 83 y/o M admitted on 09/17/18 for Fall. Chief Complaint: [] Interval history: Mr. Marin is a 83 year old M With quite complicated medical history who comes in after a fall from a trip. Following a left hip with immediate pain and deformity. No head trauma. He is on Xarelto for atrial fibrillation. Patient is advanced health care after recent discharge from the hospital for heart failure. Patient has been hospitalized twice this year for altered mental status and heart failure and chest pain that was ruled out cardiac after work-up including SPECT scan. 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 He has a history of obstructive sleep apnea and has refused CPAP. He is has failure to thrive. His best vascular dementia. 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 H fibrillation grade 3 diastolic heart failure severe pulmonary hypertension chronic kidney disease chronic anemia. In the ED was worked up which included imaging which showed a left subcapital hip fracture. 09/18 No overnight events. Patient now status post hip pinning. Patient seen in PACU. No intraoperative complications. Patient still feeling effects of anesthesia. 09/19 Sitting up in chair this morning's seems to be feeling well. No complaints. Asked about the Bumex and torsemide it sounds like the torsemide is PRN medication was added later. Review of Systems: denies headache/fever/chills/nausea/vomiting/chest or abdominal pain/cough/dyspnea/diarrhea. Otherwise see above. - Constitutional Vitals: Vital Signs Temp Pulse Resp BP Pulse Ox 97.8 F 74 16 93/55 99 09/19/18 07:00 09/19/18 04:01 09/19/18 07:00 09/19/18 07:00 09/19/18 07:00 Period Temp Pulse Resp BP Sys/Fox Pulse Ox Last 24 Hr 97.0 F-98.6 F 41-105 10-28 85-128/55-82 90-99 Intake and Output 06/29/19 06/30/19 06/30/19 21:59 05:59 13:59 Intake Total 480 1610 65 Output Total 575 300 250 Balance -95 1310 -185 Weight 77.111 kg Intake & Output: Intake & Output 09/18/18 09/19/18 09/19/18 21:59 05:59 13:59 Intake Total 480 1610 65 Output Total 575 300 250 Balance -95 1310 -185 Weight 77.111 kg Intake: IV 290 65 Oral 480 1320 Output: Void Amount 575 300 250 Other: Meal Dinner Percent of Meal Consumed 50% Feeding Ability Independent Urine Appearance Clear Urine Color Straw Exam: General: Awake, No acute Distress Eyes/N/T: EOMI,, Head/Neck: neck supple, CV: irreg irreg, No murmurs, Pulm: Clear b/l, no wheezing/rhonchi/rales Abd: soft, nontender, +BS x4 Ext: no clubbing/cyanosis, 1+ chronic b/l LE edema decreased Neuro: Alert, no focal deficits, moves all extremities skin: warm/dry Medical - PN: Obj Da - Labs CBC & Chem 7: 09/19/18 03:34 09/19/18 03:34 Labs: Abnormal Lab Results 09/19/18 09/19/18 09/18/18 03:34 03:34 03:35 WBC RBC 2.05 L Hgb 7.3 L Hct 22.9 L MCV 111.9 H MCH 35.5 H RDW 16.8 H Plt Count 135 L Gran % Lymph % (Auto) 10.0 L [place] % (Auto) Gran # Lymph # (Auto) 0.7 L [place] # (Auto) PT INR Sodium 131 L Potassium 3.0 L Chloride 93 L 93 L BUN 50 H 53 H Creatinine 1.5 H 1.3 H Glucose 160 H 141 H Uric Acid 13.4 H GGT 64 H Lactate Dehydrogenase 313 H 09/18/18 09/18/18 09/17/18 03:35 03:35 19:28 WBC 11.8 H RBC 2.35 L Hgb 8.4 L Hct 26.0 L MCV 110.8 H MCH 35.8 H RDW 17.4 H Plt Count Gran % 81.1 H Lymph % (Auto) 7.4 L [place] % (Auto) Gran # 9.5 H Lymph # (Auto) 0.9 L [place] # (Auto) 1.2 H PT 16.0 H INR 1.3 H Sodium 131 L Potassium Chloride 90 L BUN 58 H Creatinine 1.5 H Glucose 190 H Uric Acid GGT Lactate Dehydrogenase 09/17/18 09/17/18 19:28 19:28 WBC RBC 2.38 L Hgb 8.5 L Hct 26.1 L MCV 109.6 H MCH 35.8 H RDW 16.8 H Plt Count Gran % Lymph % (Auto) [place] % (Auto) 14.2 H Gran # Lymph # (Auto) 1.4 L [place] # (Auto) PT 16.7 H INR 1.4 H Sodium Potassium Chloride BUN Creatinine Glucose Uric Acid GGT Lactate Dehydrogenase Meds: Medications Acetaminophen (Tylenol) 650 mg PO Q6HP PRN PRN Reason: PAIN/FEVER > 101 Albuterol/Ipratropium (Duoneb) 3 ml NEB Q4HP PRN PRN Reason: Shortness Of Breath Bisacodyl (Dulcolax) 10 mg [place] DAILYP PRN PRN Reason: Constipation Bumetanide (Bumex) 2 mg PO BIDD [facility] Last Admin: 09/19/18 07:28 Dose: 2 mg Documented by: Calcium Carbonate/Glycine (Tums) 1,000 mg PO DAILY [facility] ([facility]) [facility] Last Admin: 09/19/18 07:19 Dose: 3.125 mg Documented by: Citalopram Hydrobromide (Celexa) 10 mg PO DAILY [facility] Colchicine (Colcrys) 0.6 mg PO DAILY [facility] Docusate Sodium (Colace) 100 mg PO BID [facility] Last Admin: 09/18/18 20:42 Dose: 100 mg Documented by: Hydromorphone HCl (Dilaudid) 0.5 mg IV Q2HP PRN PRN Reason: PAIN LEVEL > 6 Last Admin: 09/18/18 21:03 Dose: 0.5 mg Documented by: Potassium Chloride 40 meq/ (Dextrose) 520 mls @ 130 mls/hr IV UD PRN PRN Reason: Potassium < 3 Magnesium Sulfate (Magnesium Sulfate) 2 gm in 50 mls @ 50 mls/hr IV UD PRN PRN Reason: Magnesium </= 1.6 Acetaminophen (Ofirmev) 650 mg in 65 mls @ 130 mls/hr IV Q6HP PRN PRN Reason: PAIN/FEVER > 101 Last Infusion: 09/19/18 06:30 Dose: Infused Documented by: Iron Carb/Multivit/[place]/Folic Acid (Multivitamin W/Minerals) 1 tab PO DAILY [facility] Lactulose (Cephulac) 10 gm PO DAILYP PRN PRN Reason: Constipation Loperamide HCl (Imodium) 2 mg PO PRN PRN PRN Reason: Constipation Magnesium Hydroxide (Milk Of Magnesia) 30 ml PO DAILYP PRN PRN Reason: Constipation Metoclopramide HCl (Reglan) 10 mg IV Q6HP PRN PRN Reason: Nausea And Vomiting Omeprazole (Prilosec) 20 mg PO ACB [facility] Last Admin: 09/19/18 07:19 Dose: 20 mg Documented by: Ondansetron HCl (Zofran) 4 mg IV Q4HP PRN PRN Reason: Nausea And Vomiting Last Admin: 09/18/18 12:23 Dose: 4 mg Documented by: Oxycodone/Acetaminophen (Percocet 5-325 Mg) 1 tab PO Q4HP PRN PRN Reason: PAIN LEVEL 3-6 Last Admin: 09/19/18 05:54 Dose: 1 tab Documented by: Eplerenone [Inspra] (100 Mg Tab) 1 dose PO DAILY [facility] Tafamidis Meglumine ([Vyndaqel] 61 Mg Tab) 1 dose PO DAILY [facility] Last Admin: 09/18/18 12:00 Dose: 1 dose Documented by: Polyethylene Glycol (Miralax) 17 gm PO DAILYP PRN PRN Reason: Constipation Last Admin: 09/18/18 20:41 Dose: 17 gm Documented by: Potassium Chloride (Kdur) 40 meq PO QAC [facility] Last Admin: 09/19/18 07:18 Dose: 40 meq Documented by: Potassium Chloride (Kdur) 40 meq PO UD PRN PRN Reason: Potssium is 3-3.5 Potassium Chloride (Kdur) 40 meq PO UD PRN PRN Reason: Potassium < 3 Promethazine HCl (Phenergan) 0 mg PO Q6HP PRN PRN Reason: Nausea And Vomiting Rivaroxaban (Xarelto) 15 mg PO QPMCC [facility] Last Admin: 09/18/18 16:54 Dose: 15 mg Documented by: Senna (Senokot) 2 tab PO HSP PRN PRN Reason: Constipation Last Admin: 09/18/18 20:42 Dose: 2 tab Documented by: Sodium Chloride (Saline Flush) 10 ml IV Q8 [facility] Last Admin: 09/19/18 05:49 Dose: 10 ml Documented by: Throat Lozenges (Cepacol) 1 lozenge PO PRN PRN PRN Reason: Sore Throat Torsemide (Demadex) 40 mg PO BIDD [facility] Last Admin: 09/19/18 07:19 Dose: 40 mg Documented by: Tramadol HCl (Ultram) 50 mg PO Q6HP PRN PRN Reason: Pain Trazodone HCl (Desyrel) 25 mg PO HS [facility] Last Admin: 09/18/18 20:42 Dose: 25 mg Documented by: Medical - PN: A/P - Time Spent With Patient Total time spent is greater than 50% in coordination of care (as documented) at patient's floor/unit and/or counseling patient: - Narrative A/P Narrative: A: *Acute left hip fracture after trip and fall: s/p Hip pinning (09/18) *Generalized weakness/deconditioning/debility/failure to thrive: *h/o diastolic (III) CHF: 2/2 amyloidosis *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 Plunkett for orthopedic surgery -monitor i/o, weights, fluid balance closely -monitor H&H, prn transfusion -pain control -cont BB -DIURETICS: listed meds are Bumex/HCTZ/Torsemide/Eplerenone. Trying to clarify, -bumex may have been recently started prn -pending records -pt/ot -CM for placement -ppx: SCD until surgery DNR/DNI Medical - PN: Qual - VTE Deep Vein Thrombosis/Pulmonary Embolism Present on Admission: No
[2018-09-19] MEDS: diphenhydrAMINE 50 MG/ML VIAL IV PRN ×2 (08:20→14:39)
[2018-09-19] MEDS: POLYETHYLENE GLYCOL 3350 17 GM PACKET PO PRN (08:21)
[2018-09-19] MEDS ORDERED: COLCHICINE 0.6 MG TABLET PO SCH (09:00)
[2018-09-19] MEDS ORDERED: NON FORMULARY MEDICATION 1 DOSE MISCELL (Potassium Chloride [K-Tab Er] 20 MEQ) PO SCH (09:00)
[2018-09-19] MEDS: CALCIUM CARBONATE 500 MG TAB.CHEW PO SCH (09:03)
[2018-09-19] MEDS: COLCHICINE 0.6 MG TABLET PO SCH (09:03)
[2018-09-19] MEDS: TAFAMIDIS MEGLUMINE PO SCH (09:03)
[2018-09-19] MEDS: DOCUSATE SODIUM 100 MG CAPSULE PO SCH ×2 (09:03→21:11)
[2018-09-19] MEDS: CITALOPRAM 20 MG TABLET PO SCH (09:03)
[2018-09-19] MEDS: EPLERENONE 100 MG PO SCH (09:04)
[2018-09-19] MEDS: MULTIVIT,THER IRON,CA,FA & MIN 1 TABLET PO SCH (09:32)
[2018-09-19] MEDS: HYDROmorphone 2 MG/ML VIAL IV PRN (10:29)
--- NOTE | 2018-09-19 11:28 | Orthopedic Progress Note ---
Subjective Patient information: Note initiated : 09/19/18 at 11:24 am Service Date, if different from initiated Date: [] Patient: Solitario Marin 83 y/o M admitted on 09/17/18 for Fall. Chief Complaint: [] Interval history: No acute events overnight. Denies chest pain, shortness of breath. Pain is improving. Has ambulated to chair and sat for breakfast. Objective Vital signs: Vital Signs Temp Pulse Resp BP BP Pulse Ox 09/19/18 08:36 18 93 09/19/18 07:06 74 93/55 99 09/19/18 07:00 97.8 F 16 93/55 99 09/19/18 06:01 29 H 109/74 09/19/18 05:01 14 102/56 09/19/18 04:01 98.2 F 74 20 94/56 94 09/19/18 03:00 10 L 91/63 09/19/18 02:00 11 L 91/57 09/19/18 01:38 11 L 88/59 09/19/18 01:00 11 L 88/58 09/19/18 00:26 26 H 09/19/18 00:08 98.2 F 21 99/82 97 09/19/18 00:01 11 L 85/58 09/18/18 23:01 10 L 103/63 09/18/18 22:01 11 L 97/64 09/18/18 21:01 98.5 F 19 115/61 09/18/18 20:09 23 H 105/58 09/18/18 20:00 95 09/18/18 17:25 73 14 97 09/18/18 17:01 98.0 F 73 16 116/75 96 09/18/18 16:01 57 L 28 H 105/66 97 09/18/18 15:01 72 19 100/60 95 09/18/18 14:01 17 128/78 09/18/18 13:01 92 H 14 116/73 95 09/18/18 12:31 70 14 118/73 96 09/18/18 12:01 98.3 F 15 108/63 95 09/18/18 11:31 17 108/67 94 Intake and Output 09/18/18 09/19/18 09/19/18 21:59 05:59 13:59 Intake Total 480 1610 65 Output Total 575 300 250 Balance -95 1310 -185 Intake: IV 290 65 Oral 480 1320 Output: Void Amount 575 300 250 Other: Meal Dinner Percent of Meal Consumed 50% Feeding Ability Independent Urine Appearance Clear Urine Color Straw Weight 170 lb Intake & Output: Intake & Output 09/18/18 09/19/18 09/19/18 21:59 05:59 13:59 Intake Total 480 1610 65 Output Total 575 300 250 Balance -95 1310 -185 Weight 170 lb Intake: IV 290 65 Oral 480 1320 Output: Void Amount 575 300 250 Other: Meal Dinner Percent of Meal Consumed 50% Feeding Ability Independent Urine Appearance Clear Urine Color Straw Dressing: Yes clean, Yes dry, Yes intact Weight bearing status: partial Range of motion: hip flexion to 45 degrees, no pain with log roll of hip. Additional Comments: Foot warm well perfused. - Labs CBC & BMP: 09/19/18 03:34 09/19/18 03:34 Labs: Orthopedic Labs 09/18/18 09/17/18 03:35 19:28 PT 16.0 H 16.7 H INR 1.3 H 1.4 H 09/19/18 09/18/18 09/17/18 03:34 03:35 19:28 Hgb 7.3 L 8.4 L 8.5 L Hct 22.9 L 26.0 L 26.1 L Assessment and Plan (1) Femur fracture, left POD 1 s/p internal fixation left non displaced femoral neck fracture -- weight bearing 50%, PT/OT ---- sit in chair TID with meals -- limit narcotic pain medications ------ Tylenol seems better for him -- Prophy: IS, amina, scds, mobilization -- Dispo: potential d/c tomorrow to snf Status: Acute Qualifiers: Encounter type: initial encounter Femur location: intracapsular Fracture type: closed Qualified Code(s): S72.012A - Unspecified intracapsular fracture of left femur, initial encounter for closed fracture
[2018-09-19] MEDS: RIVAROXABAN 15 MG TABLET PO SCH (17:18)
[2018-09-19] MEDS: SENNOSIDES 1 TABLET PO PRN (21:11)
[2018-09-19] MEDS: traZODone HCL 50 MG TABLET PO SCH (21:11)
[2018-09-20] MEDS: diphenhydrAMINE 50 MG/ML VIAL IV PRN ×2 (00:04→08:06)
[2018-09-20] MEDS: oxyCODONE/APAP 5/325MG TABLET PO PRN (04:39)
[2018-09-20] MEDS: ACETAMINOPHEN 650 MG/65 ML BOTTLE IV PRN (04:40)
[2018-09-20] MEDS: 0.9 % SODIUM CHLORIDE 10 ML SYRINGE IV SCH ×4 (04:41→21:43)
[2018-09-20 06:54] LABS: ALT/SGPT < 5 U/l (0-40); AST/SGOT 21 U/l (0-37); Albumin 2.9 gm/dL (3.2-5.2); Alkaline Phosphatase 56 U/L (39-117); Bilirubin,Direct < 0.2 mg/dL (0.0-0.3); Bilirubin,Total 0.5 mg/dL (0.0-1.0); Blood Urea Nitrogen 61 mg/dl (8-23); Calcium 9.3 mg/dl (8.6-10.4); Carbon Dioxide 25 mmol/L (22-30); Chloride 88 mmol/L (96-108); Globulin 2.9 gm/dL (2.2-3.7); Glomerular Filtration Rate 30; Glucose 165 mg/dL (70-105); Lactate Dehydrogenase 269 U/L (94-250); Magnesium 2.3 mg/dL (1.6-2.5); Phosphorous 3.5 mg/dL (2.7-4.5); Potassium 5.3 mmol/L (3.3-5.1); Sodium 129 mmol/L (133-145); Triglycerides 91 mg/dl (<150); Uric Acid 12.7 mg/dL (2.5-8.0)
[2018-09-20] MEDS: OMEPRAZOLE 20 MG CAPSULE PO SCH (07:14)
[2018-09-20] MEDS: POLYETHYLENE GLYCOL 3350 17 GM PACKET PO PRN (07:15)
[2018-09-20] MEDS ORDERED: 0.9 % SODIUM CHLORIDE 500 ML IV ONE (07:26)
[2018-09-20 07:34] LABS: Basophils # (Auto) 0 K/mcL (0.0-0.3); Basophils % (Auto) 0.1 % (0.0-2.0); Eosinophils # (Auto) 0.6 K/mcL (0.0-0.7); Eosinophils % (Auto) 7.4 % (0.0-7.0); Granulocytes % (Auto) 60.7 % (38.0-78.0); Hematocrit 23.1 % (41.0-55.0); Hemoglobin 7.5 g/dL (13.5-16.5); Lymphocytes # (Auto) 1.1 K/mcL (1.5-4.8); Lymphocytes % (Auto) 14.2 % (15.5-49.0); Mean Cell Volume 110.2 fL (80.0-100.0); Mean Corpuscular HGB Conc 32.6 g/dL (31.0-36.0); Mean Platelet Volume 8.5 fL (7.4-10.4); Monocytes # (Auto) 1.4 K/mcL (0.1-0.9); Monocytes % (Auto) 17.6 % (1.0-12.0); Platelet Count 141 K/mcL (140-440); Red Cell Distribution Width 16.8 % (11.5-14.5); WBC 7.9 K/mcL (4.5-11.0)
[2018-09-20] MEDS: CARVEDILOL 3.125 MG TABLET PO SCH ×2 (08:07→18:06)
--- NOTE | 2018-09-20 08:11 | Operative Note ---
DATE OF OPERATION: 09/18/2018 PREOPERATIVE DIAGNOSIS: Left femoral neck subcapital fracture, minimal displacement. POSTOPERATIVE DIAGNOSIS: Left femoral neck subcapital fracture, minimal displacement. PROCEDURE PERFORMED: Operative internal fixation of left femoral neck fracture with cannulated screws. SURGEON: Deb Plunkett MD. MEDIA STRATEGIST: Jordin Longo PA-C. The PA's assistance was required for the safe and efficient completion of the entire case. This provider's expertise and technical skill were required throughout the case. The PA assisted with preoperative coordination, intraoperative retraction, wound closure, dressing and splint application, as well as postoperative documentation and care coordination. ANESTHESIA: General via LMA. IV FLUIDS: 600 mL lactated ringer. ESTIMATED BLOOD LOSS: Less than 20 mL TOURNIQUET TIME: Not applicable. ANTIBIOTICS: 2 grams Ancef. IMPLANTS: 3 6.5mm short threaded cannulated screws from Nesha, titanium. PATHOLOGY: None. INTRAOPERATIVE COMPLICATIONS: None apparent. INDICATIONS: The patient is an 83-year-old male who yesterday afternoon fell when his walker collapsed, resulting in the left hip fracture, nondisplaced femoral neck, demonstrated on CT scan. I had a lengthy discussion with him, along with his son with regards to treatment options. My recommendation was for pinning of his left hip to improve his pain as well as allow for mobilization. He does have a relatively complicated medical history and is at higher risk which he does understand. Given his options he does want to proceed with surgery. DESCRIPTION OF PROCEDURE: The patient was taken to the preoperative holding area and site was verified and marked with the patient's input. He was then taken back to the operating room where he underwent successful anesthesia via LMA. He was transferred to the [place] table with left foot placed into a boot and secured. The right lower extremity with compression device was placed and then a leg meyer with the hip flexed and the knee flexed to keep it out of the way for x-ray of the operative hip on the left side. The left hip was then prepped and draped in the usual sterile fashion with a shower drape after obtaining C-arm images. Surgical timeout was performed to verify the patient and the correct procedure being performed and extremity to be operated on, and everybody was in agreement. Fluoroscopy was brought in. Utilizing the guide pin along the inferior femoral neck in order to have the entry point being at the level of lesser trochanter I created a stab incision at the lateral aspect of the femur and placed a guidepin in place. This was verified on the AP and lateral with the lateral being slightly more posterior than central which is what I prefer. The guide pin was then placed. We enlarged our incision superiorly and incised to the tensor fascia irwin laterally. Placed our parallel guide. We placed two additional K-wires through to the lateral cortex and visualized this on the lateral fluoroscopy as well to ensure that this was within the femoral neck. I liked the overall position with inverted slightly rotated posterior triangle. The guide was then placed to be subchondral. They were measured. The outer cortex was drilled and screws were placed with posterior inferior beams first, posterior superior second, anterior superior third and they were each sequentially placed. Once this completed, fluoroscopy was utilized to ensure the screws were subchondral and did not penetrate the joint. Visualization was a bit difficult for some reason. However, on multiple views there was no penetration of the subchondral bone that was apparent. At this point, the wound was copiously irrigated. The tensor fascia was closed with 0 Vicryl, the subcutaneous tissue with 3-0 Vicryl and skin with tiara. The hip was then cleaned and dried. Xeroform along with fluffs and Medipore tape and a sterile dressing were placed. The patient was then awoke from anesthesia and transferred to PACU in stable condition. POSTOPERATIVE PLAN: The patient will be readmitted back to the floor. He will be protected weightbearing with walker and with physical therapy and transfer likely to a rehab facility. DLW:dm Job ID: [id number] Doc ID: [id number] [facility] Plunkett [facility]
[2018-09-20] MEDS ORDERED: MINERAL OIL 1 DOSE ENEMA PR PRN ×2 (08:16→13:49)
[2018-09-20] MEDS ORDERED: POLYETHYLENE GLYCOL 3350 17 GM PACKET PO SCH (09:00)
[2018-09-20] MEDS ORDERED: oxyCODONE HCL 5 MG TABLET PO PRN ×2 (09:12→13:49)
--- NOTE | 2018-09-20 09:13 | Internal Med Progress Note ---
Medical - PN: Subj Patient information: Note initiated : 09/20/18 at 9:10 am Service Date, if different from initiated Date: [] Patient: Solitario Marin a 83 y/o M admitted on 09/17/18 for Fall. Chief Complaint: [] Interval history: Mr. Marin is a 83 year old M With quite complicated medical history who comes in after a fall from a trip. Following a left hip with immediate pain and deformity. No head trauma. He is on Xarelto for atrial fibrillation. Patient is advanced health care after recent discharge from the hospital for heart failure. Patient has been hospitalized twice this year for altered mental status and heart failure and chest pain that was ruled out cardiac after work-up including SPECT scan. 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 He has a history of obstructive sleep apnea and has refused CPAP. He is has failure to thrive. His best vascular dementia. 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 H fibrillation grade 3 diastolic heart failure severe pulmonary hypertension chronic kidney disease chronic anemia. In the ED was worked up which included imaging which showed a left subcapital hip fracture. 09/18 No overnight events. Patient now status post hip pinning. Patient seen in PACU. No intraoperative complications. Patient still feeling effects of anesthesia. 09/19 Sitting up in chair this morning's seems to be feeling well. No complaints. Asked about the Bumex and torsemide it sounds like the torsemide is PRN medication was added later. 09/20 Patient seen examined, no acute issues, tolerating po diet well, mildly confused, no new complaints pain control reasonable. pt having some rash to tramadol, d/c same, Pertinent ROS: Denies headache, dizziness Denies chest pain, palpitations Denies cough or shortness of breath Denies abdominal pain, nausea or vomiting. Itching noted afte tramadol - Constitutional Vitals: Vital Signs Temp Pulse Resp BP Pulse Ox 98.0 F 86 20 114/86 94 09/20/18 04:28 09/19/18 23:56 09/20/18 04:28 09/20/18 04:28 09/20/18 04:28 Period Temp Pulse Resp BP Sys/Fox Pulse Ox Last 24 Hr 97.4 F-99 F 81-87 14-20 97-190/41-179 92-100 Intake and Output 09/19/18 09/20/18 09/20/18 21:59 05:59 13:59 Intake Total 185 850 316 Output Total 200 340 Balance -15 510 316 Weight 174 lb 8 oz Intake & Output: Intake & Output 09/19/18 09/20/18 09/20/18 21:59 05:59 13:59 Intake Total 185 850 316 Output Total 200 340 Balance -15 510 316 Weight 174 lb 8 oz Intake: IV 65 130 316 Sodium Chloride 0.9% 500 ml @ 316 Wide Open IV BOLUS ONE Rx#: [id number] Oral 120 720 Output: Void Amount 200 340 Exam: Constitutional; Afebrile, cooperative, alert, not in distress. Respiratory system: Air Entry equal on both sides, No crackles or wheezing, no rhonchi. CVS- Rate rhythm regular, S1,S2 heard, no gallop, no rub. Abdomen- Soft nontender abdomen, no organomegaly, no tenderness, no guarding or rigidity, COMPUTER PERIPHERAL EQUIPMENT OPERATOR- AOOx3, moving all extremities, no gross focal deficit noted. Medical - PN: Obj Da - Labs CBC & Chem 7: 09/20/18 03:47 09/20/18 03:47 Labs: Abnormal Lab Results 09/20/18 09/20/18 09/19/18 03:47 03:47 03:34 WBC RBC 2.10 L Hgb 7.5 L Hct 23.1 L MCV 110.2 H MCH 35.9 H RDW 16.8 H Plt Count Gran % Lymph % (Auto) 14.2 L [place] % (Auto) 17.6 H Eos % (Auto) 7.4 H Gran # Lymph # (Auto) 1.1 L [place] # (Auto) 1.4 H PT INR Sodium 129 L Potassium 5.3 H Chloride 88 L BUN 61 H Creatinine 2.0 H Glucose 165 H Uric Acid 12.7 H 13.2 H GGT Lactate Dehydrogenase 269 H Total Protein 5.8 L Albumin 2.9 L 09/19/18 09/19/18 09/18/18 03:34 03:34 03:35 WBC RBC 2.05 L Hgb 7.3 L Hct 22.9 L MCV 111.9 H MCH 35.5 H RDW 16.8 H Plt Count 135 L Gran % Lymph % (Auto) 10.0 L [place] % (Auto) Eos % (Auto) Gran # Lymph # (Auto) 0.7 L [place] # (Auto) PT INR Sodium 131 L Potassium 3.0 L Chloride 93 L 93 L BUN 50 H 53 H Creatinine 1.5 H 1.3 H Glucose 160 H 141 H Uric Acid 13.4 H GGT 64 H Lactate Dehydrogenase 313 H Total Protein Albumin 09/18/18 09/18/18 09/17/18 03:35 03:35 19:28 WBC 11.8 H RBC 2.35 L Hgb 8.4 L Hct 26.0 L MCV 110.8 H MCH 35.8 H RDW 17.4 H Plt Count Gran % 81.1 H Lymph % (Auto) 7.4 L [place] % (Auto) Eos % (Auto) Gran # 9.5 H Lymph # (Auto) 0.9 L [place] # (Auto) 1.2 H PT 16.0 H INR 1.3 H Sodium 131 L Potassium Chloride 90 L BUN 58 H Creatinine 1.5 H Glucose 190 H Uric Acid GGT Lactate Dehydrogenase Total Protein Albumin 09/17/18 09/17/18 19:28 19:28 WBC RBC 2.38 L Hgb 8.5 L Hct 26.1 L MCV 109.6 H MCH 35.8 H RDW 16.8 H Plt Count Gran % Lymph % (Auto) [place] % (Auto) 14.2 H Eos % (Auto) Gran # Lymph # (Auto) 1.4 L [place] # (Auto) PT 16.7 H INR 1.4 H Sodium Potassium Chloride BUN Creatinine Glucose Uric Acid GGT Lactate Dehydrogenase Total Protein Albumin Meds: Medications Acetaminophen (Tylenol) 650 mg PO Q6HP PRN PRN Reason: PAIN/FEVER > 101 Albuterol/Ipratropium (Duoneb) 3 ml NEB Q4HP PRN PRN Reason: Shortness Of Breath Bisacodyl (Dulcolax) 10 mg TX DAILYP PRN PRN Reason: Constipation Calcium Carbonate/Glycine (Tums) 1,000 mg PO DAILY [facility] Last Admin: 09/19/18 09:03 Dose: 1,000 mg Documented by: Carvedilol (Coreg) 3.125 mg PO BIDCC [facility] Last Admin: 09/20/18 08:07 Dose: 3.125 mg Documented by: Citalopram Hydrobromide (Celexa) 10 mg PO DAILY [facility] Last Admin: 09/19/18 09:03 Dose: 10 mg Documented by: Colchicine (Colcrys) 0.6 mg PO DAILY [facility] Last Admin: 09/19/18 09:03 Dose: 0.6 mg Documented by: Diphenhydramine HCl (Benadryl) 25 mg IV Q4HP PRN PRN Reason: Allergic Symptoms Last Admin: 09/20/18 08:06 Dose: 25 mg Documented by: Docusate Sodium (Colace) 100 mg PO BID [facility] Last Admin: 09/19/18 21:11 Dose: 100 mg Documented by: Hydromorphone HCl (Dilaudid) 0.5 mg IV Q2HP PRN PRN Reason: PAIN LEVEL > 6 Last Admin: 09/19/18 10:29 Dose: 0.5 mg Documented by: Magnesium Sulfate (Magnesium Sulfate) 2 gm in 50 mls @ 50 mls/hr IV UD PRN PRN Reason: Magnesium </= 1.6 Acetaminophen (Ofirmev) 650 mg in 65 mls @ 130 mls/hr IV Q6HP PRN PRN Reason: PAIN/FEVER > 101 Last Infusion: 09/20/18 05:10 Dose: Infused Documented by: Iron Carb/Multivit/Rhine/Folic Acid (Multivitamin W/Minerals) 1 tab PO DAILY [facility] Last Admin: 09/19/18 09:32 Dose: 1 tab Documented by: Lactulose (Cephulac) 10 gm PO DAILYP PRN PRN Reason: Constipation Loperamide HCl (Imodium) 2 mg PO PRN PRN PRN Reason: Constipation Magnesium Hydroxide (Milk Of Magnesia) 30 ml PO DAILYP PRN PRN Reason: Constipation Last Admin: 09/19/18 21:12 Dose: 30 ml Documented by: Metoclopramide HCl (Reglan) 10 mg IV Q6HP PRN PRN Reason: Nausea And Vomiting Mineral Oil (Mineral Oil Enema) 1 dose TX ONCE PRN PRN Reason: Constipation Omeprazole (Prilosec) 20 mg PO ACB [facility] Last Admin: 09/20/18 07:14 Dose: 20 mg Documented by: Ondansetron HCl (Zofran) 4 mg IV Q4HP PRN PRN Reason: Nausea And Vomiting Last Admin: 09/18/18 12:23 Dose: 4 mg Documented by: Oxycodone/Acetaminophen (Percocet 5-325 Mg) 1 tab PO Q4HP PRN PRN Reason: PAIN LEVEL 3-6 Last Admin: 09/20/18 04:39 Dose: 1 tab Documented by: Eplerenone [Inspra] (100 Mg Tab) 1 dose PO DAILY [facility] Last Admin: 09/19/18 09:04 Dose: Not Given Documented by: Tafamidis Meglumine ([Vyndaqel] 61 Mg Tab) 1 dose PO DAILY [facility] Last Admin: 09/19/18 09:03 Dose: 1 dose Documented by: Polyethylene Glycol (Miralax) 17 gm PO TID [facility] Promethazine HCl (Phenergan) 0 mg PO Q6HP PRN PRN Reason: Nausea And Vomiting Rivaroxaban (Xarelto) 15 mg PO QPMCC [facility] Last Admin: 09/19/18 17:18 Dose: 15 mg Documented by: Senna (Senokot) 2 tab PO HSP PRN PRN Reason: Constipation Last Admin: 09/19/18 21:11 Dose: 2 tab Documented by: Sodium Chloride (Saline Flush) 10 ml IV Q8 [facility] Last Admin: 09/20/18 08:05 Dose: 10 ml Documented by: Throat Lozenges (Cepacol) 1 lozenge PO PRN PRN PRN Reason: Sore Throat Tramadol HCl (Ultram) 50 mg PO Q6HP PRN PRN Reason: Pain Last Admin: 09/20/18 07:14 Dose: 50 mg Documented by: Trazodone HCl (Desyrel) 25 mg PO HS [facility] Last Admin: 09/19/18 21:11 Dose: 25 mg Documented by: Medical - PN: A/P - Time Spent With Patient Total time spent is greater than 50% in coordination of care (as documented) at patient's floor/unit and/or counseling patient: - Narrative A/P Narrative: A: *Acute left hip fracture after trip and fall: s/p Hip pinning (09/18) *Generalized weakness/deconditioning/debility/failure to thrive: *h/o diastolic (III) CHF: 2/2 amyloidosis *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 Plunkett for orthopedic surgery, appreciate input. -monitor i/o, weights, fluid balance closely Pt is 3192 ml positive, will give 250cc IVF today, and monitor renal function -Miralax for constipation, if no response, trial of enema. -monitor H&H, prn transfusion -pain control, change regime, to APAP scheduled 1gm tid, oxycodone 5mmg prn, dilaudid iv prn -cont BB -DIURETICS: listed meds are Bumex/HCTZ/Torsemide/Eplerenone. Trying to clarify, -bumex may have been recently started prn -review records -consider resuming bumex -pt/ot -CM for placement -ppx: SCD until surgery Medical - PN: Qual - VTE Deep Vein Thrombosis/Pulmonary Embolism Present on Admission: No
[2018-09-20] MEDS: TAFAMIDIS MEGLUMINE PO SCH (09:28)
[2018-09-20] MEDS: COLCHICINE 0.6 MG TABLET PO SCH (09:30)
[2018-09-20] MEDS: DOCUSATE SODIUM 100 MG CAPSULE PO SCH ×2 (09:31→21:43)
[2018-09-20] MEDS: CITALOPRAM 20 MG TABLET PO SCH (09:31)
[2018-09-20] MEDS: CALCIUM CARBONATE 500 MG TAB.CHEW PO SCH (09:32)
[2018-09-20] MEDS: EPLERENONE 100 MG PO SCH (09:33)
[2018-09-20] MEDS: MULTIVIT,THER IRON,CA,FA & MIN 1 TABLET PO SCH (09:41)
--- NOTE | 2018-09-20 13:48 | Orthopedic Progress Note ---
Subjective Patient information: Note initiated : 09/20/18 at 1:45 pm Service Date, if different from initiated Date: [] Patient: Solitario Marin 83 y/o M admitted on 09/17/18 for Fall. Chief Complaint: [] Interval history: No acute events overnight. Has worked some with therapy. He has ambulated a very short distance within his room. He is tolerating a diet. He does endorse pain in the right lateral aspect of the hip- no groin pain. Objective Vital signs: Vital Signs Temp Pulse Pulse Resp BP BP Pulse Ox 09/20/18 13:37 98.3 F 18 115/71 97 09/20/18 07:00 98.2 F 18 123/68 98 09/20/18 04:28 98.0 F 20 114/86 94 09/19/18 23:56 98 F 86 18 99/72 93 09/19/18 19:49 99 F 85 20 110/65 93 09/19/18 17:01 87 101/41 100 09/19/18 16:01 98.6 F 14 97/57 99 09/19/18 15:24 120/72 09/19/18 15:22 98.1 F 14 120/72 94 Intake and Output 09/19/18 09/20/18 09/20/18 21:59 05:59 13:59 Intake Total 185 850 316 Output Total 200 340 250 Balance -15 510 66 Intake: IV 65 130 316 Sodium Chloride 0.9% 500 ml @ 316 Wide Open IV BOLUS ONE Rx#: [id number] Oral 120 720 Output: Void Amount 200 340 250 Other: Weight 174 lb 8 oz Intake & Output: Intake & Output 09/19/18 09/20/18 09/20/18 21:59 05:59 13:59 Intake Total 185 850 316 Output Total 200 340 250 Balance -15 510 66 Weight 174 lb 8 oz Intake: IV 65 130 316 Sodium Chloride 0.9% 500 ml @ 316 Wide Open IV BOLUS ONE Rx#: [id number] Oral 120 720 Output: Void Amount 200 340 250 Incision: Yes clean and dry Incision clean and dry: Yes Dressing: Yes clean, Yes dry, Yes intact Weight bearing status: partial Range of motion: has knee flexion contracture, very resistant to motion about the hip- Additional Comments: foot warm well perfused. - Labs CBC & BMP: 09/20/18 03:47 09/20/18 03:47 Labs: Orthopedic Labs 09/18/18 09/17/18 03:35 19:28 PT 16.0 H 16.7 H INR 1.3 H 1.4 H 09/20/18 09/19/18 09/18/18 03:47 03:34 03:35 Hgb 7.5 L 7.3 L 8.4 L Hct 23.1 L 22.9 L 26.0 L 09/17/18 19:28 Hgb 8.5 L Hct 26.1 L Assessment and Plan (1) Femur fracture, left POD 2 s/p internal fixation left non displaced femoral neck fracture -- weight bearing 50%, PT/OT ---- sit in chair TID with meals ------- does sit with meals, slow transfers, H/H stable -- limit narcotic pain medications ------ Tylenol seems better for him -- Prophy: IS, xarelto, scds, mobilization -- Dispo: pending but will need some form of therapy and SNF. Status: Acute Qualifiers: Encounter type: initial encounter Femur location: intracapsular Fracture type: closed Qualified Code(s): S72.012A - Unspecified intracapsular fracture of left femur, initial encounter for closed fracture
[2018-09-20] MEDS ORDERED: LOPERAMIDE 2 MG CAPSULE PO PRN (13:49)
[2018-09-20] MEDS ORDERED: IPRATROPIUM/ALBUTEROL 3 ML AMPUL.NEB NEB PRN (13:49)
[2018-09-20] MEDS ORDERED: LACTULOSE 20 GM/30 ML ORAL.SOL PO PRN (13:49)
[2018-09-20] MEDS ORDERED: MAGNESIUM SULFATE 2 GM/50 ML BAG IV PRN (13:49)
[2018-09-20] MEDS ORDERED: METOCLOPRAMIDE 10 MG/2 ML VIAL IV PRN (13:49)
[2018-09-20] MEDS ORDERED: BENZOCAINE/MENTHOL 1 LOZENGE PO PRN (13:49)
[2018-09-20] MEDS ORDERED: BISACODYL 10 MG SUPP.RECT PR PRN (13:49)
[2018-09-20] MEDS ORDERED: HYDROmorphone 2 MG/ML VIAL IV PRN (13:49)
[2018-09-20] MEDS ORDERED: ONDANSETRON 4 MG/2 ML VIAL IV PRN (13:49)
[2018-09-20] MEDS ORDERED: diphenhydrAMINE 50 MG/ML VIAL IV PRN (13:49)
[2018-09-20] MEDS ORDERED: PROMETHAZINE 25 MG TABLET PO PRN (13:49)
[2018-09-20] MEDS ORDERED: MAGNESIUM HYDROXIDE 30 ML ORAL.SUSP PO PRN (13:49)
[2018-09-20] MEDS: POLYETHYLENE GLYCOL 3350 17 GM PACKET PO SCH ×2 (14:46→21:42)
[2018-09-20] MEDS: ACETAMINOPHEN 500 MG TABLET PO SCH ×2 (14:47→21:43)
[2018-09-20] MEDS ORDERED: ACETAMINOPHEN 500 MG TABLET PO SCH (15:00)
[2018-09-20 16:26] LABS: Blood Urea Nitrogen 65 mg/dl (8-23); Calcium 9.2 mg/dl (8.6-10.4); Carbon Dioxide 26 mmol/L (22-30); Chloride 88 mmol/L (96-108); Glomerular Filtration Rate 32; Glucose 186 mg/dL (70-105); Potassium 5.6 mmol/L (3.3-5.1); Sodium 127 mmol/L (133-145)
[2018-09-20] MEDS ORDERED: BUMETANIDE 0.25 MG/ML VIAL IV ONE (16:27)
[2018-09-20] MEDS ORDERED: SODIUM POLYSTYRENE SULFONATE 15 GM/60 ML SUSPENSION PO ONE (16:28)
[2018-09-20] MEDS: RIVAROXABAN 15 MG TABLET PO SCH (18:06)
--- NOTE | 2018-09-20 18:26 | General Surgery Consult Note ---
History of Present Illness Patient information: Note initiated : 09/20/18 at 6:23 pm Service Date, if different from initiated Date: [] Patient: Solitario Marin 83 y/o M admitted on 09/17/18 for Fall. Chief Complaint: [] Consult date: 09/20/18 Requesting physician: Caitlyn Govea (Wound Care. Left Elbow skin tears) History of present illness: I saw this gentleman along with Jyothi CABRAL Charge Nurse and Pooja CABRAL. Reason for consultation: Recommendations for Left Elbow skin tears care. S/P foam bandaged dressings placed over 3 days earlier. I reviewed patient's EHR and Dr. tellez's admission Hand P note and Orthopedic surgeon Dr. Plunkett's procedure note for ORIF of Left hip. Medications and Allergies Home Medications Medication Instructions Recorded Confirmed Type Multivit-Min/Iron/Folic Acid/K 1 tab PO DAILY 01/21/18 09/18/18 History [Adults Multivitamin Tablet] Polyethylene Glycol 3350 [Miralax] 17 gm PO BID #60 packet 01/26/18 09/18/18 Rx Acetaminophen [Pain Relief] 650 mg PO Q4 PRN 09/18/18 09/18/18 History Bisacodyl [Dulcolax] 10 mg NV ONCE 09/18/18 09/18/18 History Bumetanide 2 mg PO BID 09/18/18 09/18/18 History Calcium Carbonate [Calcium] 1,000 mg PO DAILY 09/18/18 09/18/18 History Carvedilol [Coreg] 3.125 mg PO BID 09/18/18 09/18/18 History Citalopram Hydrobromide 10 mg PO DAILY 09/18/18 09/18/18 History [Citalopram HBr] Colchicine [Colcrys] 0.6 mg PO DAILY 09/18/18 09/18/18 History Docusate Sodium [Colace] 100 mg PO BID 09/18/18 09/18/18 History Eplerenone [Inspra] 100 mg PO DAILY 09/18/18 09/18/18 History HYDROcodone/APAP 5/325MG [Watson 1 - 2 tab PO Q6 PRN 09/18/18 09/18/18 History 5-325Mg] Hydrochlorothiazide 50 mg PO DAILY 09/18/18 09/18/18 History Ibuprofen [Advil] 400 mg PO Q6HP PRN 09/18/18 09/18/18 History Loperamide [Imodium] 2 mg PO PRN PRN 09/18/18 09/18/18 History Loratadine [Loradamed] 10 mg PO DAILY PRN 09/18/18 09/18/18 History Magnesium Hydroxide [Milk of 400 mg PO DAILY PRN 09/18/18 09/18/18 History Magnesia] Omeprazole 20 mg PO DAILY 09/18/18 09/18/18 History Ondansetron HCl [Zofran] 4 mg PO Q6 PRN 09/18/18 09/18/18 History Potassium Chloride [K-Tab ER] 20 meq PO DAILY 09/18/18 09/18/18 History Potassium Chloride [K-Tab ER] 40 meq PO DAILY 09/18/18 09/18/18 History Rivaroxaban [Xarelto] 15 mg PO DAILY 09/18/18 09/18/18 History Tafamidis Meglumine [Vyndaqel] 61 mg PO DAILY 09/18/18 09/18/18 History Torsemide [Demadex] 40 mg PO BID 09/18/18 09/18/18 History traZODone HCL [Trazodone HCl] 25 mg PO HS 09/18/18 09/18/18 History Allergies Allergy/AdvReac Type Severity Reaction Status Date / Time ciprofloxacin Allergy Severe Anaphylaxis Verified 09/17/18 18:35 Amoxicillin [AMOXICILLIN] Allergy Mild RASH Verified 09/18/18 07:02 azithromycin [From Zithromax] Allergy Mild Pruritis Verified 09/18/18 07:02 methocarbamol AdvReac Intermediate VIOLENTLY Verified 09/18/18 07:02 ILL codeine AdvReac Mild NAUSEA/VOMI Verified 09/18/18 07:02 TING hydrocodone AdvReac Mild NAUSEA/BLOA Verified 09/18/18 07:02 TING tramadol [TRAMADOL] AdvReac Mild Nausea/Vomi Verified 09/18/18 07:02 ting tobramycin AdvReac Unknown UNKNOWN Verified 09/17/18 18:35 Exam Temp Pulse Resp BP Pulse Ox 98.0 F 72 16 113/69 84 L 09/20/18 15:01 09/20/18 14:10 09/20/18 15:01 09/20/18 15:01 09/20/18 15:01 - General physical appearance well developed, well nourished, no distress, moderate pain, chronically ill - Eyes PERRL, normal ocular movement - ENT normal pinna, normal nares, normal mucosa, no congestion - Head Head exam IM: Present: atraumatic, normocephalic - Neck no masses, trachea midline, no venous distension - Cardiovascular Cardiovascular exam IM: Present: normal rate and rhythm - Respiratory normal respiratory effort - Abdomen Abdomen: Present: soft, non tender, bowel sounds - Integumentary Present: other (Scattered bruises skin and dermis. secondary to falls, medications. Avulsion skin tears LEFT elbow. See photographs. ) - Neurologic Present: other (Non focal neurological exmination. ) - Musculoskeletal Present: other (In bed or sitting on chair. ) - Psychiatric Present: speech is normal, other (Comfortable. H/O Dementia. ) Results - Labs 09/21/18 03:48 09/21/18 03:48 Abnormal lab results 09/20/18 09/20/18 09/20/18 Range/Units 03:47 03:47 15:15 RBC 2.10 L (4.50-5.90) M/mcL Hgb 7.5 L (13.5-16.5) g/dL Hct 23.1 L (41.0-55.0) % MCV 110.2 H (80.0-100.0) fL MCH 35.9 H (26.0-34.0) pg RDW 16.8 H (11.5-14.5) % Lymph % (Auto) 14.2 L (15.5-49.0) % Wallace % (Auto) 17.6 H (1.0-12.0) % Eos % (Auto) 7.4 H (0.0-7.0) % Lymph # (Auto) 1.1 L (1.5-4.8) K/mcL Wallace # (Auto) 1.4 H (0.1-0.9) K/mcL Sodium 129 L 127 L (133-145) mmol/L Potassium 5.3 H 5.6 H (3.3-5.1) mmol/L Chloride 88 L 88 L (96-108) mmol/L BUN 61 H 65 H (8-23) mg/dl Creatinine 2.0 H 1.9 H (0.7-1.2) mg/dl Glucose 165 H 186 H (70-105) mg/dL Uric Acid 12.7 H (2.5-8.0) mg/dL Lactate Dehydrogenase 269 H (94-250) U/L Total Protein 5.8 L (5.9-8.4) gm/dL Albumin 2.9 L (3.2-5.2) gm/dL Diabetes panel 09/20/18 09/20/18 Range/Units 03:47 15:15 Sodium 129 L 127 L (133-145) mmol/L Potassium 5.3 H 5.6 H (3.3-5.1) mmol/L Chloride 88 L 88 L (96-108) mmol/L Carbon Dioxide 25 26 (22-30) mmol/L BUN 61 H 65 H (8-23) mg/dl Creatinine 2.0 H 1.9 H (0.7-1.2) mg/dl Glucose 165 H 186 H (70-105) mg/dL Calcium 9.3 9.2 (8.6-10.4) mg/dl AST 21 (0-37) U/l ALT < 5 (0-40) U/l Alkaline Phosphatase 56 (39-117) U/L Total Protein 5.8 L (5.9-8.4) gm/dL Albumin 2.9 L (3.2-5.2) gm/dL Triglycerides 91 (<150) mg/dl Calcium panel 09/20/18 09/20/18 Range/Units 03:47 15:15 Calcium 9.3 9.2 (8.6-10.4) mg/dl Phosphorus 3.5 (2.7-4.5) mg/dL Albumin 2.9 L (3.2-5.2) gm/dL Pituitary panel 09/20/18 09/20/18 Range/Units 03:47 15:15 Sodium 129 L 127 L (133-145) mmol/L Potassium 5.3 H 5.6 H (3.3-5.1) mmol/L Chloride 88 L 88 L (96-108) mmol/L Carbon Dioxide 25 26 (22-30) mmol/L BUN 61 H 65 H (8-23) mg/dl Creatinine 2.0 H 1.9 H (0.7-1.2) mg/dl Glucose 165 H 186 H (70-105) mg/dL Calcium 9.3 9.2 (8.6-10.4) mg/dl Adrenal panel 09/20/18 09/20/18 Range/Units 03:47 15:15 Sodium 129 L 127 L (133-145) mmol/L Potassium 5.3 H 5.6 H (3.3-5.1) mmol/L Chloride 88 L 88 L (96-108) mmol/L Carbon Dioxide 25 26 (22-30) mmol/L BUN 61 H 65 H (8-23) mg/dl Creatinine 2.0 H 1.9 H (0.7-1.2) mg/dl Glucose 165 H 186 H (70-105) mg/dL Calcium 9.3 9.2 (8.6-10.4) mg/dl Total Bilirubin 0.5 (0.0-1.0) mg/dL AST 21 (0-37) U/l ALT < 5 (0-40) U/l Alkaline Phosphatase 56 (39-117) U/L Total Protein 5.8 L (5.9-8.4) gm/dL Albumin 2.9 L (3.2-5.2) gm/dL All other labs normal. Assessment and Plan (1) Skin tear of left elbow without complication Assessment: Skin tear Left elbow lateral aspect. NO neurovascular deficit. Plan: See wound care orders. Will follow patient while in hospital. Status: Acute Priority: Low
--- NOTE | 2018-09-20 19:49 | Ultrasound Report ---
CLINICAL INFORMATION: Fall. Possible renal injury TECHNIQUE: Diggs scale and color flow Doppler spectral imaging COMPARISON: Previous CT scan dated 04/19/2018 FINDINGS: Right kidney measures 9.8 x 4.9 x 5.0 cm. There are multiple cysts. 2 cysts identified sonographically. There is an upper pole cyst which measures 16 mm. There is a mid pole cyst which measures 7 mm. No detectable solid masses. There is a probable 6 mm mid pole stone. There is no hydronephrosis. Left kidney measures 10.5 x 5.5 x 4.3 cm. There are multiple cysts. There is an upper pole cyst which measures 6.6 cm maximally. There is a bilobed cyst in the lower pole which measures 4.7 cm. A cysts. No solid mass identified. There is no hydronephrosis. No calculi. No posttraumatic abnormality. There is no perinephric hemorrhage. Bladder measures 184 and L. Ureteral jets are not visualized IMPRESSION: 1. Multiple renal cysts. No detectable solid lesion 2. Nonobstructing right renal calculus 3. No hydronephrosis. 4. No posttraumatic abnormality. No perinephric hemorrhage. Interpreted and Authenticated by: Shashi Cruz 09/20/18
[2018-09-20] MEDS ORDERED: SENNOSIDES 1 TABLET PO PRN (21:00)
[2018-09-20] MEDS: traZODone HCL 50 MG TABLET PO SCH (21:43)
[2018-09-20 22:30] LABS: Blood Urea Nitrogen 67 mg/dl (8-23); Calcium 9.4 mg/dl (8.6-10.4); Carbon Dioxide 27 mmol/L (22-30); Chloride 85 mmol/L (96-108); Glomerular Filtration Rate 27; Glucose 155 mg/dL (70-105); Potassium 5.4 mmol/L (3.3-5.1); Sodium 126 mmol/L (133-145)
[2018-09-21] MEDS: 0.9 % SODIUM CHLORIDE 10 ML SYRINGE IV SCH ×3 (05:30→21:02)
[2018-09-21 06:01] LABS: Basophils # (Auto) 0 K/mcL (0.0-0.3); Basophils % (Auto) 0.1 % (0.0-2.0); Eosinophils # (Auto) 0.7 K/mcL (0.0-0.7); Eosinophils % (Auto) 7.2 % (0.0-7.0); Granulocytes % (Auto) 63.8 % (38.0-78.0); Hematocrit 23.8 % (41.0-55.0); Hemoglobin 7.7 g/dL (13.5-16.5); Lymphocytes # (Auto) 1.2 K/mcL (1.5-4.8); Lymphocytes % (Auto) 12.3 % (15.5-49.0); Mean Cell Volume 111.1 fL (80.0-100.0); Mean Corpuscular HGB Conc 32.4 g/dL (31.0-36.0); Mean Platelet Volume 8.5 fL (7.4-10.4); Monocytes # (Auto) 1.6 K/mcL (0.1-0.9); Monocytes % (Auto) 16.6 % (1.0-12.0); Platelet Count 142 K/mcL (140-440); RBC 2.14 M/mcL (4.50-5.90); Red Cell Distribution Width 17.2 % (11.5-14.5); WBC 9.8 K/mcL (4.5-11.0)
[2018-09-21 06:14] LABS: ALT/SGPT < 5 U/l (0-40); AST/SGOT 24 U/l (0-37); Alkaline Phosphatase 68 U/L (39-117); Bilirubin,Direct 0.2 mg/dL (0.0-0.3); Bilirubin,Total 0.6 mg/dL (0.0-1.0); Blood Urea Nitrogen 65 mg/dl (8-23); Calcium 9.2 mg/dl (8.6-10.4); Carbon Dioxide 25 mmol/L (22-30); Chloride 88 mmol/L (96-108); Glomerular Filtration Rate 32; Glucose 141 mg/dL (70-105); Lactate Dehydrogenase 299 U/L (94-250); Magnesium 2.4 mg/dL (1.6-2.5); Phosphorous 3.8 mg/dL (2.7-4.5); Potassium 5.1 mmol/L (3.3-5.1); Sodium 127 mmol/L (133-145); Triglycerides 131 mg/dl (<150); Uric Acid 12.6 mg/dL (2.5-8.0)
[2018-09-21] MEDS: OMEPRAZOLE 20 MG CAPSULE PO SCH (07:32)
--- NOTE | 2018-09-21 07:34 | Orthopedic Progress Note ---
Subjective Patient information: Note initiated : 09/21/18 at 7:31 am Service Date, if different from initiated Date: [] Patient: Solitario Marin 83 y/o M admitted on 09/17/18 for Fall. Chief Complaint: [] Interval history: Patient without new complaints but has itching, continues to complain of pain. No chest pain or shortness of breath. Has been ambulating short distances. Objective Vital signs: Vital Signs Temp Pulse Resp BP BP Pulse Ox 09/21/18 06:48 98.6 F 77 16 111/75 98 09/21/18 03:26 98.2 F 72 16 104/70 99 09/20/18 23:11 98.1 F 87 14 104/72 95 09/20/18 19:41 98.0 F 86 16 102/68 97 09/20/18 15:01 98.0 F 16 113/69 84 L 09/20/18 14:10 97.7 F 72 18 118/69 97 09/20/18 13:37 98.3 F 18 115/71 97 Intake and Output 09/20/18 09/21/18 09/21/18 21:59 05:59 13:59 Intake Total 360 240 Output Total 300 1100 Balance 60 -860 Intake: Oral 360 240 Output: Void Amount 300 1100 Other: Meal Lunch Percent of Meal Consumed 100% Feeding Ability Independent Urine Appearance Clear Urine Color Bright Yellow Stool Size Moderate Stool Color Brown Stool Consistency Soft # Bowel Movements 1 Weight 190 lb 8 oz Intake & Output: Intake & Output 09/20/18 09/21/18 09/21/18 21:59 05:59 13:59 Intake Total 360 240 Output Total 300 1100 Balance 60 -860 Weight 190 lb 8 oz Intake: Oral 360 240 Output: Void Amount 300 1100 Other: Meal Lunch Percent of Meal Consumed 100% Feeding Ability Independent Urine Appearance Clear Urine Color Bright Yellow Stool Size Moderate Stool Color Brown Stool Consistency Soft # Bowel Movements 1 Dressing: Yes clean, Yes dry, Yes intact Weight bearing status: partial Range of motion: hip flexion to 70 degrees this AM, knee to 90 degrees, can log roll Extremities exam IM: Yes Foot pink and warm - Labs CBC & BMP: 09/21/18 03:48 09/21/18 03:48 Labs: Orthopedic Labs 09/18/18 09/17/18 03:35 19:28 PT 16.0 H 16.7 H INR 1.3 H 1.4 H 09/21/18 09/20/18 09/19/18 03:48 03:47 03:34 Hgb 7.7 L 7.5 L 7.3 L Hct 23.8 L 23.1 L 22.9 L 09/18/18 09/17/18 03:35 19:28 Hgb 8.4 L 8.5 L Hct 26.0 L 26.1 L Assessment and Plan (1) Femur fracture, left POD 3 s/p internal fixation left non displaced femoral neck fracture -- weight bearing 50%, PT/OT ---- sit in chair TID with meals ------- does sit with meals, slow transfers, H/H stable -- limit narcotic pain medications ------ Tylenol and will transition to tramadol -- Prophy: IS, xarelto, scds, mobilization -- Dispo: will benefit from SNF placement. Status: Acute Qualifiers: Encounter type: initial encounter Femur location: intracapsular Fracture type: closed Qualified Code(s): S72.012A - Unspecified intracapsular fracture of left femur, initial encounter for closed fracture
[2018-09-21] MEDS ORDERED: traMADol 50 MG TABLET PO PRN ×2 (07:35→10:15)
[2018-09-21] MEDS: CARVEDILOL 3.125 MG TABLET PO SCH ×2 (07:56→17:15)
[2018-09-21] MEDS: BUMETANIDE 1 MG TABLET PO SCH ×2 (07:56→16:28)
[2018-09-21] MEDS: TAFAMIDIS MEGLUMINE PO SCH (08:52)
[2018-09-21] MEDS: COLCHICINE 0.6 MG TABLET PO SCH (08:54)
[2018-09-21] MEDS: CALCIUM CARBONATE 500 MG TAB.CHEW PO SCH (08:54)
[2018-09-21] MEDS: POLYETHYLENE GLYCOL 3350 17 GM PACKET PO SCH ×3 (08:54→20:38)
[2018-09-21] MEDS: ACETAMINOPHEN 500 MG TABLET PO SCH ×3 (08:54→20:45)
[2018-09-21] MEDS: DOCUSATE SODIUM 100 MG CAPSULE PO SCH ×2 (08:55→20:38)
[2018-09-21] MEDS: CITALOPRAM 20 MG TABLET PO SCH (08:55)
[2018-09-21] MEDS: MULTIVIT,THER IRON,CA,FA & MIN 1 TABLET PO SCH (08:55)
[2018-09-21] MEDS: EPLERENONE 100 MG PO SCH (08:56)
--- NOTE | 2018-09-21 09:01 | General Surgery Progress Note ---
Subjective Narrative: Note initiated : 09/21/18 at 8:58 am Service Date, if different from initiated Date: [] Patient: Solitario Marin 83 y/o M admitted on 09/17/18 for Fall. Chief Complaint: [] Patient seen on rounds with Evangelina CABRAL, Inpatient wound care nurse. Ongoing wound care for skin tear of LEFT elbow reviewed. Appreciate Orthopedic input from Dr. Plunkett. Objective Temp Pulse Resp BP Pulse Ox 98.6 F 77 16 111/75 98 09/21/18 06:48 09/21/18 07:33 09/21/18 06:48 09/21/18 06:48 09/21/18 06:48 AVSS. No acute changes NATHAN. Left elbow wound care to continue. - Additional Data Intake & Output - Last 24 hours: Intake & Output 09/19/18 09/20/18 09/21/18 09/22/18 05:59 05:59 05:59 05:59 Intake Total 3400 1910 1486 Output Total 905 786 4336 Balance 2525 1120 -264 Weight 170 lb 174 lb 8 oz 190 lb 8 oz - Labs 09/21/18 03:48 09/21/18 03:48 Diabetes panel 09/20/18 09/20/18 09/21/18 Range/Units 15:15 21:25 03:48 Sodium 127 L 126 L 127 L (133-145) mmol/L Potassium 5.6 H 5.4 H 5.1 (3.3-5.1) mmol/L Chloride 88 L 85 L 88 L (96-108) mmol/L Carbon Dioxide 26 27 25 (22-30) mmol/L BUN 65 H 67 H 65 H (8-23) mg/dl Creatinine 1.9 H 2.2 H 1.9 H (0.7-1.2) mg/dl Glucose 186 H 155 H 141 H (70-105) mg/dL Calcium 9.2 9.4 9.2 (8.6-10.4) mg/dl AST 24 (0-37) U/l ALT < 5 (0-40) U/l Alkaline Phosphatase 68 (39-117) U/L Total Protein 6.0 (5.9-8.4) gm/dL Albumin 3.0 L (3.2-5.2) gm/dL Triglycerides 131 (<150) mg/dl Calcium panel 09/20/18 09/20/18 09/21/18 Range/Units 15:15 21:25 03:48 Calcium 9.2 9.4 9.2 (8.6-10.4) mg/dl Phosphorus 3.8 (2.7-4.5) mg/dL Albumin 3.0 L (3.2-5.2) gm/dL Pituitary panel 09/20/18 09/20/18 09/21/18 Range/Units 15:15 21:25 03:48 Sodium 127 L 126 L 127 L (133-145) mmol/L Potassium 5.6 H 5.4 H 5.1 (3.3-5.1) mmol/L Chloride 88 L 85 L 88 L (96-108) mmol/L Carbon Dioxide 26 27 25 (22-30) mmol/L BUN 65 H 67 H 65 H (8-23) mg/dl Creatinine 1.9 H 2.2 H 1.9 H (0.7-1.2) mg/dl Glucose 186 H 155 H 141 H (70-105) mg/dL Calcium 9.2 9.4 9.2 (8.6-10.4) mg/dl Adrenal panel 09/20/18 09/20/18 09/21/18 Range/Units 15:15 21:25 03:48 Sodium 127 L 126 L 127 L (133-145) mmol/L Potassium 5.6 H 5.4 H 5.1 (3.3-5.1) mmol/L Chloride 88 L 85 L 88 L (96-108) mmol/L Carbon Dioxide 26 27 25 (22-30) mmol/L BUN 65 H 67 H 65 H (8-23) mg/dl Creatinine 1.9 H 2.2 H 1.9 H (0.7-1.2) mg/dl Glucose 186 H 155 H 141 H (70-105) mg/dL Calcium 9.2 9.4 9.2 (8.6-10.4) mg/dl Total Bilirubin 0.6 (0.0-1.0) mg/dL AST 24 (0-37) U/l ALT < 5 (0-40) U/l Alkaline Phosphatase 68 (39-117) U/L Total Protein 6.0 (5.9-8.4) gm/dL Albumin 3.0 L (3.2-5.2) gm/dL Assessment and Plan - Narrative A/P Narrative: Assessment: Satisfactory progress. Plan: Continue wound care. If D/C f/u at wound center in ONE week. - Time Spent With Patient Total time spent is greater than 50% in coordination of care (as documented) at patient's floor/unit and/or counseling patient: less than 15 minutes
--- NOTE | 2018-09-21 10:18 | Internal Med Progress Note ---
Medical - PN: Subj Patient information: Note initiated : 09/21/18 at 10:15 am Service Date, if different from initiated Date: [] Patient: Solitario Marin a 83 y/o M admitted on 09/17/18 for Fall. Chief Complaint: [] Interval history: Mr. Marin is a 83 year old M With quite complicated medical history who comes in after a fall from a trip. Following a left hip with immediate pain and deformity. No head trauma. He is on Xarelto for atrial fibrillation. Patient is advanced health care after recent discharge from the hospital for heart failure. Patient has been hospitalized twice this year for altered mental status and heart failure and chest pain that was ruled out cardiac after work-up including SPECT scan. 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 He has a history of obstructive sleep apnea and has refused CPAP. He is has failure to thrive. His best vascular dementia. 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 H fibrillation grade 3 diastolic heart failure severe pulmonary hypertension chronic kidney disease chronic anemia. In the ED was worked up which included imaging which showed a left subcapital hip fracture. 09/18 No overnight events. Patient now status post hip pinning. Patient seen in PACU. No intraoperative complications. Patient still feeling effects of anesthesia. 09/19 Sitting up in chair this morning's seems to be feeling well. No complaints. Asked about the Bumex and torsemide it sounds like the torsemide is PRN medication was added later. 09/20 Patient seen examined, no acute issues, tolerating po diet well, mildly confused, no new complaints pain control reasonable. pt having some rash to tramadol, d/c same, 09/21 Pt seen examined back on tramadol as per ortho, was confused after benadry yesterday, trial of cetrizine for itching off narcotic pain meds Pt had BM yesterday, had worsening renal function, hyponatremia and hyperkalemia Pts labs show slight improvement in creat today, sodium stable, K stable, Will monitor for 1 more day. Pertinent ROS: Denies headache, dizziness Denies chest pain, palpitations Denies cough or shortness of breath Denies abdominal pain, nausea or vomiting. Pain at site of surgery 10/30 - Constitutional Vitals: Vital Signs Temp Pulse Resp BP Pulse Ox 98.6 F 77 16 111/75 98 09/21/18 06:48 09/21/18 07:33 09/21/18 06:48 09/21/18 06:48 09/21/18 06:48 Period Temp Pulse Resp BP Sys/Fox Pulse Ox Last 24 Hr 97.7 F-98.6 F 72-87 14-18 102-118/68-75 84-99 Intake and Output 09/20/18 09/21/18 09/21/18 21:59 05:59 13:59 Intake Total 360 240 Output Total 300 1100 Balance 60 -860 Weight 190 lb 8 oz Intake & Output: Intake & Output 09/20/18 09/21/18 09/21/18 21:59 05:59 13:59 Intake Total 360 240 Output Total 300 1100 Balance 60 -860 Weight 190 lb 8 oz Intake: Oral 360 240 Output: Void Amount 300 1100 Other: Meal Lunch Percent of Meal Consumed 100% Feeding Ability Independent Urine Appearance Clear Urine Color Bright Yellow Stool Size Moderate Stool Color Brown Stool Consistency Soft # Bowel Movements 1 Exam: Constitutional; Afebrile, cooperative, alert, not in distress. Respiratory system: Air Entry equal on both sides, No crackles or wheezing, no rhonchi. CVS- Rate rhythm regular, S1,S2 heard, no gallop, no rub. Abdomen- Soft nontender abdomen, no organomegaly, no tenderness, no guarding or rigidity, EXHAUST AND MUFFLER FITTER- AOOx3, moving all extremities, no gross focal deficit noted. Medical - PN: Obj Da - Labs CBC & Chem 7: 09/21/18 03:48 09/21/18 03:48 Labs: Abnormal Lab Results 09/21/18 09/21/18 09/20/18 03:48 03:48 21:25 RBC 2.14 L Hgb 7.7 L Hct 23.8 L MCV 111.1 H MCH 36.0 H RDW 17.2 H Plt Count Lymph % (Auto) 12.3 L [place] % (Auto) 16.6 H Eos % (Auto) 7.2 H Lymph # (Auto) 1.2 L [place] # (Auto) 1.6 H Sodium 127 L 126 L Potassium 5.4 H Chloride 88 L 85 L BUN 65 H 67 H Creatinine 1.9 H 2.2 H Glucose 141 H 155 H Uric Acid 12.6 H GGT 81 H Lactate Dehydrogenase 299 H Total Protein Albumin 3.0 L 09/20/18 09/20/18 09/20/18 15:15 03:47 03:47 RBC 2.10 L Hgb 7.5 L Hct 23.1 L MCV 110.2 H MCH 35.9 H RDW 16.8 H Plt Count Lymph % (Auto) 14.2 L [place] % (Auto) 17.6 H Eos % (Auto) 7.4 H Lymph # (Auto) 1.1 L [place] # (Auto) 1.4 H Sodium 127 L 129 L Potassium 5.6 H 5.3 H Chloride 88 L 88 L BUN 65 H 61 H Creatinine 1.9 H 2.0 H Glucose 186 H 165 H Uric Acid 12.7 H GGT Lactate Dehydrogenase 269 H Total Protein 5.8 L Albumin 2.9 L 09/19/18 09/19/18 09/19/18 03:34 03:34 03:34 RBC 2.05 L Hgb 7.3 L Hct 22.9 L MCV 111.9 H MCH 35.5 H RDW 16.8 H Plt Count 135 L Lymph % (Auto) 10.0 L [place] % (Auto) Eos % (Auto) Lymph # (Auto) 0.7 L [place] # (Auto) Sodium 131 L Potassium Chloride 93 L BUN 50 H Creatinine 1.5 H Glucose 160 H Uric Acid 13.2 H GGT Lactate Dehydrogenase Total Protein Albumin Meds: Medications Acetaminophen (Tylenol) 1,000 mg PO TID [facility] Last Admin: 09/21/18 08:54 Dose: 1,000 mg Documented by: Albuterol/Ipratropium (Duoneb) 3 ml NEB Q4HP PRN PRN Reason: Shortness Of Breath Bisacodyl (Dulcolax) 10 mg OK DAILYP PRN PRN Reason: Constipation Bumetanide (Bumex) 2 mg PO BIDD [facility] Last Admin: 09/21/18 07:56 Dose: 2 mg Documented by: Calcium Carbonate/Glycine (Tums) 1,000 mg PO DAILY [facility] Last Admin: 09/21/18 08:54 Dose: 1,000 mg Documented by: [facility] Last Admin: 09/21/18 07:56 Dose: 3.125 mg Documented by: Cetirizine HCl (Zyrtec) 10 mg PO DAILY [facility] Citalopram Hydrobromide (Celexa) 10 mg PO DAILY [facility] Last Admin: 09/21/18 08:55 Dose: 10 mg Documented by: Colchicine (Colcrys) 0.6 mg PO DAILY [facility] Last Admin: 09/21/18 08:54 Dose: 0.6 mg Documented by: Docusate Sodium (Colace) 100 mg PO BID [facility] Last Admin: 09/21/18 08:55 Dose: 100 mg Documented by: Magnesium Sulfate (Magnesium Sulfate) 2 gm in 50 mls @ 50 mls/hr IV UD PRN PRN Reason: Magnesium </= 1.6 Iron Carb/Multivit/Trilla/Folic Acid (Multivitamin W/Minerals) 1 tab PO DAILY [facility] Last Admin: 09/21/18 08:55 Dose: 1 tab Documented by: Lactulose (Cephulac) 10 gm PO DAILYP PRN PRN Reason: Constipation Loperamide HCl (Imodium) 2 mg PO PRN PRN PRN Reason: Constipation Magnesium Hydroxide (Milk Of Magnesia) 30 ml PO DAILYP PRN PRN Reason: Constipation Metoclopramide HCl (Reglan) 10 mg IV Q6HP PRN PRN Reason: Nausea And Vomiting Mineral Oil (Mineral Oil Enema) 1 dose OK ONCE PRN PRN Reason: Constipation Last Admin: 09/20/18 16:17 Dose: 1 dose Documented by: Omeprazole (Prilosec) 20 mg PO ACB [facility] Last Admin: 09/21/18 07:32 Dose: 20 mg Documented by: Ondansetron HCl (Zofran) 4 mg IV Q4HP PRN PRN Reason: Nausea And Vomiting Eplerenone [Inspra] (100 Mg Tab) 1 dose PO DAILY [facility] Last Admin: 09/21/18 08:56 Dose: Not Given Documented by: Tafamidis Meglumine ([Vyndaqel] 61 Mg Tab) 1 dose PO DAILY [facility] Last Admin: 09/21/18 08:52 Dose: 1 dose Documented by: Polyethylene Glycol (Miralax) 17 gm PO TID [facility] Last Admin: 09/21/18 08:54 Dose: 17 gm Documented by: Promethazine HCl (Phenergan) 0 mg PO Q6HP PRN PRN Reason: Nausea And Vomiting Rivaroxaban (Xarelto) 15 mg PO QPMCC [facility] Last Admin: 09/20/18 18:06 Dose: 15 mg Documented by: Desirae (Senokot) 2 tab PO HSP PRN PRN Reason: Constipation Last Admin: 09/20/18 21:42 Dose: 2 tab Documented by: Sodium Chloride (Saline Flush) 10 ml IV Q8 [facility] Last Admin: 09/21/18 05:30 Dose: 10 ml Documented by: Throat Lozenges (Cepacol) 1 lozenge PO PRN PRN PRN Reason: Sore Throat Tramadol HCl (Ultram) 50 - 100 mg PO Q4-6HP PRN PRN Reason: Pain Trazodone HCl (Desyrel) 25 mg PO HS [facility] Last Admin: 09/20/18 21:43 Dose: 25 mg Documented by: Medical - PN: A/P - Time Spent With Patient Total time spent is greater than 50% in coordination of care (as documented) at patient's floor/unit and/or counseling patient: - Narrative A/P Narrative: A: *Acute left hip fracture after trip and fall: s/p Hip pinning (09/18) -management per ortho Acute post op pain -not tolerating opiates well, on tramadol and acetaminophen -cannot use nsaids in light of renal function -gabapentin started Itching -due to opiates, hold dilaudid, oxycodone -cetrizine to be started -gabapentin should also help *Generalized weakness/deconditioning/debility/failure to thrive: -will need snf placement *h/o diastolic (III) CHF: 2/2 amyloidosis -stable, resumed home diuretic dose today *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 -on experimental med Tafamidis *Afib: On BB/Xarelto -rate stable, *Severe pulmonary HTN: -stable *HTN: -stable *CKD III (base Cr~1.3-1.5): *Acute on Chronic Kidney injury -ATN secondary to low bp - *Anemia, chronic with acute post-op component: -7.3<8.4; no gross bleeding, stable *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 Medical - PN: Qual - VTE Deep Vein Thrombosis/Pulmonary Embolism Present on Admission: No
[2018-09-21] MEDS: CETIRIZINE 10 MG TABLET PO SCH (10:29)
[2018-09-21] MEDS: traMADol 50 MG TABLET PO PRN ×2 (10:29→16:28)
[2018-09-21] MEDS: GABAPENTIN 100 MG CAPSULE PO SCH ×3 (10:42→20:44)
--- NOTE | 2018-09-21 16:02 | XRay Report ---
INDICATION: Hypoxia TECHNIQUE: AP chest x-ray,portable semiupright COMPARISON: Previous chest x-rays dated 07/10/2018, 01/23/2018, 01/21/2018 FINDINGS:There is cardiomegaly, unchanged. Pulmonary vascularity is normal. No pulmonary edema or congestion. No focal pulmonary parenchymal infiltrate or mass. No acute abnormality. No interval change IMPRESSION: 1. Cardiomegaly, unchanged 2. No pulmonary edema or pulmonary congestion. 3. No acute or focal pulmonary parenchymal infiltrate 4. No interval change since 07/10/2018 Interpreted and Authenticated by: Shashi Cruz 09/21/18
[2018-09-21] MEDS: RIVAROXABAN 15 MG TABLET PO SCH (17:15)
[2018-09-21] MEDS: traZODone HCL 50 MG TABLET PO SCH (20:44)
[2018-09-21] MEDS ORDERED: THIAMINE 100 MG TABLET PO SCH (21:00)
[2018-09-22] MEDS: 0.9 % SODIUM CHLORIDE 10 ML SYRINGE IV SCH (04:43)
[2018-09-22 05:41] LABS: Basophils # (Auto) 0 K/mcL (0.0-0.3); Basophils % (Auto) 0.4 % (0.0-2.0); Eosinophils # (Auto) 0.6 K/mcL (0.0-0.7); Granulocytes % (Auto) 60.4 % (38.0-78.0); Hematocrit 23.9 % (41.0-55.0); Hemoglobin 7.7 g/dL (13.5-16.5); Lymphocytes # (Auto) 1.1 K/mcL (1.5-4.8); Lymphocytes % (Auto) 13.9 % (15.5-49.0); Mean Cell Volume 110.9 fL (80.0-100.0); Mean Corpuscular HGB Conc 32.1 g/dL (31.0-36.0); Mean Platelet Volume 8.3 fL (7.4-10.4); Monocytes # (Auto) 1.3 K/mcL (0.1-0.9); Monocytes % (Auto) 17.3 % (1.0-12.0); Platelet Count 136 K/mcL (140-440); RBC 2.15 M/mcL (4.50-5.90); Red Cell Distribution Width 16.5 % (11.5-14.5); WBC 7.6 K/mcL (4.5-11.0)
[2018-09-22 06:13] LABS: ALT/SGPT < 5 U/l (0-40); AST/SGOT 21 U/l (0-37); Alkaline Phosphatase 69 U/L (39-117); Bilirubin,Direct 0.3 mg/dL (0.0-0.3); Bilirubin,Total 0.7 mg/dL (0.0-1.0); Blood Urea Nitrogen 56 mg/dl (8-23); Calcium 9.2 mg/dl (8.6-10.4); Carbon Dioxide 26 mmol/L (22-30); Chloride 92 mmol/L (96-108); Glomerular Filtration Rate 43; Glucose 121 mg/dL (70-105); Lactate Dehydrogenase 271 U/L (94-250); Magnesium 2.4 mg/dL (1.6-2.5); Phosphorous 3.6 mg/dL (2.7-4.5); Potassium 3.8 mmol/L (3.3-5.1); Sodium 133 mmol/L (133-145); Triglycerides 130 mg/dl (<150); Uric Acid 12.5 mg/dL (2.5-8.0)
[2018-09-22] MEDS: OMEPRAZOLE 20 MG CAPSULE PO SCH (06:54)
--- NOTE | 2018-09-22 07:20 | Orthopedic Progress Note ---
Subjective Patient information: Note initiated : 09/22/18 at 7:18 am Service Date, if different from initiated Date: [] Patient: Solitario Marin 83 y/o M admitted on 09/17/18 for Fall. Chief Complaint: [] Interval history: POD 4 s/p left hip pinning. No acute overnight events. Tolerating oral diet and pain meds. Has had bowel movements. No new complaints. Objective Vital signs: Vital Signs Temp Pulse Pulse Resp BP Pulse Ox 09/22/18 03:17 98.5 F 73 73 18 108/65 99 09/22/18 00:05 98.3 F 65 18 113/66 96 09/21/18 19:18 97.9 F 66 12 104/73 99 09/21/18 15:52 97.4 F 80 20 106/78 98 09/21/18 11:14 96.8 F L 96 H 20 102/68 93 09/21/18 07:33 77 Intake and Output 09/21/18 09/22/18 09/22/18 21:59 05:59 13:59 Intake Total 760 Output Total 1350 925 Balance -590 -925 Intake: Oral 760 Output: Void Amount 1350 925 Other: Percent of Meal Consumed 90 Urine Appearance Clear Clear Urine Color Bright Yellow Bright Yellow Urine Odor Normal Normal Stool Size Small Stool Color Brown Stool Consistency Soft # Bowel Movements 1 Weight 191 lb 8 oz Intake & Output: Intake & Output 09/21/18 09/22/18 09/22/18 21:59 05:59 13:59 Intake Total 760 Output Total 1350 925 Balance -590 -925 Weight 191 lb 8 oz Intake: Oral 760 Output: Void Amount 1350 925 Other: Percent of Meal Consumed 90 Urine Appearance Clear Clear Urine Color Bright Yellow Bright Yellow Urine Odor Normal Normal Stool Size Small Stool Color Brown Stool Consistency Soft # Bowel Movements 1 Dressing: Yes clean, Yes dry, Yes intact Weight bearing status: partial Range of motion: able to extend and flex to 90 degrees. Extremities exam IM: Yes Foot pink and warm - Labs CBC & BMP: 09/22/18 04:15 09/22/18 04:15 Labs: Orthopedic Labs 09/18/18 09/17/18 03:35 19:28 PT 16.0 H 16.7 H INR 1.3 H 1.4 H 09/22/18 09/21/1819 04:15 03:48 03:47 Hgb 7.7 L 7.7 L 7.5 L Hct 23.9 L 23.8 L 23.1 L 09/19/18 09/18/18 09/17/18 03:34 03:35 19:28 Hgb 7.3 L 8.4 L 8.5 L Hct 22.9 L 26.0 L 26.1 L Assessment and Plan (1) Femur fracture, left POD 4 s/p internal fixation left non displaced femoral neck fracture -- weight bearing 50%, PT/OT ---- sit in chair TID with meals ------- some improvement with mobility, H/H stable, kidney function imroved SCr- 1.5 -- limit narcotic pain medications ------ Tylenol primarily and neurotin -- Prophy: IS, xarelto, scds, mobilization -- Dispo: Possible SNF today. 50% weight bearing x6 weeks. f/u with ortho or 30 September with Rosa Abrams or [facility], Will need PT/OT Status: Acute Qualifiers: Encounter type: subsequent encounter Femur location: intracapsular Fracture type: closed Qualified Code(s): S72.012A - Unspecified intracapsular fracture of left femur, initial encounter for closed fracture
[2018-09-22] MEDS: CARVEDILOL 3.125 MG TABLET PO SCH (07:58)
[2018-09-22] MEDS: BUMETANIDE 1 MG TABLET PO SCH (07:59)
[2018-09-22] MEDS: CALCIUM CARBONATE 500 MG TAB.CHEW PO SCH (08:58)
[2018-09-22] MEDS: POLYETHYLENE GLYCOL 3350 17 GM PACKET PO SCH (08:58)
[2018-09-22] MEDS: COLCHICINE 0.6 MG TABLET PO SCH (08:59)
[2018-09-22] MEDS: CITALOPRAM 20 MG TABLET PO SCH (08:59)
[2018-09-22] MEDS: GABAPENTIN 100 MG CAPSULE PO SCH (09:00)
[2018-09-22] MEDS: ACETAMINOPHEN 500 MG TABLET PO SCH (09:00)
[2018-09-22] MEDS: CETIRIZINE 10 MG TABLET PO SCH (09:00)
[2018-09-22] MEDS: DOCUSATE SODIUM 100 MG CAPSULE PO SCH (09:00)
[2018-09-22] MEDS: MULTIVIT,THER IRON,CA,FA & MIN 1 TABLET PO SCH (09:00)
[2018-09-22] MEDS: EPLERENONE 100 MG PO SCH (09:01)
[2018-09-22] MEDS: TAFAMIDIS MEGLUMINE PO SCH (09:03)
--- NOTE | 2018-09-22 09:48 | Discharge Summary ---
Medical - DS: Prov Patient information: Note initiated : 09/22/18 at 9:44 am Service Date, if different from initiated Date: [] Patient: Solitario Marin 83 y/o M admitted on 09/17/18 for Fall. Chief Complaint: [] Date of admission: 09/17/18 23:08 Discharge date: 09/22/18 Primary care physician: Nixon Shoemaker Consults: 09/17/18 Consult to Physician [CONS] Stat Comment: Consulting Provider: Shan Thorne Reason For Exam: Physician to Consult 09/17/18 23:26 Consult to Physician [CONS] Routine Comment: Consulting Provider: Deb Plunkett Reason For Exam: Physician to Consult Discharging clinician: Caitlyn Govea Medical - DS: Meds - Discharge Medications Prescriptions: traMADol [Ultram] 50 - 100 mg PO Q4HP PRN #50 tab PRN Reason: Pain Active and Home Medications: Home Medications Multivit-Min/Iron/Folic Acid/K [Adults Multivitamin Tablet] 1 tab PO DAILY 01/21/18 [History Confirmed 09/18/18 Last Taken 09/17/18 08:30] Polyethylene Glycol 3350 [Miralax] 17 gm PO BID #60 packet 01/26/18 [Rx Confirmed 09/18/18 Last Taken 09/17/18 08:30] Acetaminophen [Pain Relief] 650 mg PO Q4 PRN 09/18/18 [History Confirmed 09/18/18 Last Taken 09/17/18 16:00] Bisacodyl [Dulcolax] 10 mg HI ONCE 09/18/18 [History Confirmed 09/18/18 Last Taken Unknown] Bumetanide 2 mg PO BID 09/18/18 [History Confirmed 09/18/18 Last Taken 09/17/18 08:30] Calcium Carbonate [Calcium] 1,000 mg PO DAILY 09/18/18 [History Confirmed 09/18/18 Last Taken Unknown] Carvedilol [Coreg] 3.125 mg PO BID 09/18/18 [History Confirmed 09/18/18 Last Taken 09/17/18 08:30] Citalopram Hydrobromide [Citalopram HBr] 10 mg PO DAILY 09/18/18 [History Confirmed 09/18/18 Last Taken 09/17/18 08:30] Colchicine [Colcrys] 0.6 mg PO DAILY 09/18/18 [History Confirmed 09/18/18 Last Taken 09/17/18 08:30] Docusate Sodium [Colace] 100 mg PO BID 09/18/18 [History Confirmed 09/18/18 Last Taken 09/17/18 08:30] Eplerenone [Inspra] 100 mg PO DAILY 09/18/18 [History Confirmed 09/18/18 Last Taken 09/17/18 08:00] HYDROcodone/APAP 5/325MG [Cullen 5-325Mg] 1 - 2 tab PO Q6 PRN 09/18/18 [History Confirmed 09/18/18 Last Taken 09/17/18 05:35] Hydrochlorothiazide 50 mg PO DAILY 09/18/18 [History Confirmed 09/18/18 Last Taken 09/17/18 08:30] Ibuprofen [Advil] 400 mg PO Q6HP PRN 09/18/18 [History Confirmed 09/18/18 Last Taken Unknown] Loperamide [Imodium] 2 mg PO PRN PRN 09/18/18 [History Confirmed 09/18/18 Last Taken Unknown] Loratadine [Loradamed] 10 mg PO DAILY PRN 09/18/18 [History Confirmed 09/18/18 Last Taken Unknown] Magnesium Hydroxide [Milk of Magnesia] 400 mg PO DAILY PRN 09/18/18 [History Confirmed 09/18/18 Last Taken Unknown] Omeprazole 20 mg PO DAILY 09/18/18 [History Confirmed 09/18/18 Last Taken 09/17/18 07:45] Ondansetron HCl [Zofran] 4 mg PO Q6 PRN 09/18/18 [History Confirmed 09/18/18 Last Taken Unknown] Potassium Chloride [K-Tab ER] 20 meq PO DAILY 09/18/18 [History Confirmed 09/18/18 Last Taken Unknown] Potassium Chloride [K-Tab ER] 40 meq PO DAILY 09/18/18 [History Confirmed 09/18/18 Last Taken 09/17/18 08:30] Rivaroxaban [Xarelto] 15 mg PO DAILY 09/18/18 [History Confirmed 09/18/18 Last Taken Unknown] Tafamidis Meglumine [Vyndaqel] 61 mg PO DAILY 09/18/18 [History Confirmed 09/18/18 Last Taken 09/17/18 11:30] Torsemide [Demadex] 40 mg PO BID 09/18/18 [History Confirmed 09/18/18 Last Taken 09/17/18 11:30] traZODone HCL [Trazodone HCl] 25 mg PO HS 09/18/18 [History Confirmed 09/18/18 Last Taken Unknown] Medical - DS: Hosp Hospital course: Mr. Marin is a 83 year old M With quite complicated medical history who comes in after a fall from a trip. Following a left hip with immediate pain and deformity. No head trauma. He is on Xarelto for atrial fibrillation. Patient is advanced health care after recent discharge from the hospital for heart failure. Patient has been hospitalized twice this year for altered mental status and heart failure and chest pain that was ruled out cardiac after work-up including SPECT scan. 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 He has a history of obstructive sleep apnea and has refused CPAP. He is has failure to thrive. His best vascular dementia. 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 H fibrillation grade 3 diastolic heart failure severe pulmonary hypertension chronic kidney disease chronic anemia. In the ED was worked up which included imaging which showed a left subcapital hip fracture. 09/18 No overnight events. Patient now status post hip pinning. Patient seen in PACU. No intraoperative complications. Patient still feeling effects of anesthesia. 09/19 Sitting up in chair this morning's seems to be feeling well. No complaints. Asked about the Bumex and torsemide it sounds like the torsemide is PRN medication was added later. 09/20 Patient seen examined, no acute issues, tolerating po diet well, mildly confused, no new complaints pain control reasonable. pt having some rash to tramadol, d/c same, 09/21 Pt seen examined back on tramadol as per ortho, was confused after benadry yesterday, trial of cetrizine for itching off narcotic pain meds Pt had BM yesterday, had worsening renal function, hyponatremia and hyperkalemia Pts labs show slight improvement in creat today, sodium stable, K stable, Will monitor for 1 more day. 09/22 Patient seen and examined, labs are stable, still has pain at the site of surgery but otherwise doing well. He is off oxygen. Chest x-ray done yesterday is negative for any acute pathology. Patient is stable for discharge will be discharged to SNF, In Summary An 83-year-old gentleman with multiple medical comorbidities presented to the hospital after a fall, developed left hip fracture, was splinted by Ortho. Postoperatively patient developed acute kidney injury which responded well to medical management. At the time of discharge patient is hemodynamically stable, tolerating p.o. diet well not on any oxygen. There was some confusion with regards to patient's diuretic use, it seems he was on Bumex as well as torsemide. I am discontinuing the torsemide at this time and we just continue on Bumex. Patient will continue his home medications as prescribed by patient's primary providers, no other changes have been made. Discharge diagnosis: Hip fracture - Time Spent with Patient Total time spent providing and/or coordinating discharge services: Greater than 30 minutes Medical - DS: Exam - Constitutional Vitals: Vital Signs Temp Pulse Pulse Resp BP Pulse Ox 09/22/18 07:00 98.6 F 70 18 110/70 98 09/22/18 03:17 98.5 F 73 73 18 108/65 99 09/22/18 00:05 98.3 F 65 18 113/66 96 09/21/18 19:18 97.9 F 66 12 104/73 99 09/21/18 15:52 97.4 F 80 20 106/78 98 09/21/18 11:14 96.8 F L 96 H 20 102/68 93 Intake and Output 09/21/18 09/22/18 09/22/18 21:59 05:59 13:59 Intake Total 760 480 Output Total 1350 925 Balance -590 -925 480 Intake: Oral 760 480 Output: Void Amount 1350 925 Other: Meal Breakfast Percent of Meal Consumed 90 75% Feeding Ability Assist with Tray Set Up Urine Appearance Clear Clear Urine Color Bright Yellow Bright Yellow Urine Odor Normal Normal Stool Size Small Stool Color Brown Stool Consistency Soft # Bowel Movements 1 Weight 191 lb 8 oz Additional comments: Constitutional; Afebrile, cooperative, alert, not in distress. Respiratory system: Air Entry equal on both sides, No crackles or wheezing, no rhonchi. CVS- Rate rhythm irregular, S1,S2 heard, no gallop, no rub. 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 Medical - DS: Data Labs on day of discharge: Labs from last 24 hours 09/22/18 09/22/18 04:15 04:15 WBC 7.6 RBC 2.15 L Hgb 7.7 L Hct 23.9 L MCV 110.9 H MCH 35.5 H MCHC 32.1 RDW 16.5 H Plt Count 136 L MPV 8.3 Gran % 60.4 Lymph % (Auto) 13.9 L Cameron % (Auto) 17.3 H Eos % (Auto) 8.0 H Baso % (Auto) 0.4 Gran # 4.6 Lymph # (Auto) 1.1 L Cameron # (Auto) 1.3 H Eos # (Auto) 0.6 Baso # (Auto) 0 Differential Comment Few nrbcs on scan Sodium 133 Potassium 3.8 Chloride 92 L Carbon Dioxide 26 Anion Gap 15.0 BUN 56 H Creatinine 1.5 H GFR Calculation 43 Glucose 121 H Uric Acid 12.5 H Calcium 9.2 Phosphorus 3.6 Magnesium 2.4 Total Bilirubin 0.7 Direct Bilirubin 0.3 GGT 76 H AST 21 ALT < 5 Alkaline Phosphatase 69 Lactate Dehydrogenase 271 H Total Protein 6.0 Albumin 3.0 L Globulin 3.0 Albumin/Globulin Ratio 1.0 Triglycerides 130 Medical - DS: A/P - Patient/Caregiver Discharge Instructions Activity: as per physical therapy, increase activity as tolerated Diet: Cardiac Additional Instructions: I have discontinued torsemide as this would be a duplicate therapy along with Bumex. Take Bumex twice a day as prescribed by a provider. Follow-up with your primary care provider in 1 week, I would recommend your primary care provider check a basic metabolic profile as well as a CBC within 1 week to document stability. Follow-up with orthopedic surgeon as advised. I have made no other changes to your chronic home medication list except the addition of thiamine which is a vitamin to your medication list If you have chest pain shortness of breath fever or any other acute concern please go back to the emergency room Other Amb Orders: OT Discharge Order Location: None Selected Physical Therapy at Discharge - [facility] Location: None Selected - Follow up Plan Follow up with: Alan Patel MD [Physician] - (follow up in wound clinic 1 week after di scharge for left arm) Nixon Shoemaker MD [Primary Care Provider] - Disposition: Xfer SNF Prognosis: Fair Rehab Potential: Fair I certify that the patient requires SNF services: Yes Overall status at discharge: patient is progressing back to baseline Medical - DS: Qual - VTE Deep Vein Thrombosis/Pulmonary Embolism Present on Admission: No
== END 2018-09-22 11:23 | DRG 480 ==
LOC: ED 18:34 → ICU 23:08 → MEDSUR 09-20 16:43
PROVIDERS: ADMIT Internal Medicine; ATTEND Internal Medicine